=== PATIENT | male | born 1960 | race Caucasian/White ===

== ENCOUNTER 2024-12-25 02:32 | Inpatient (IN) ==
[2024-12-25 03:12] LABS: iSTAT Ionized Calcium 1.12 mmol/l (1.12-1.32); iSTAT Potassium 3.7 mmol/L (3.3-5.0)
--- NOTE | 2024-12-25 03:13 | Emergency Department Note ---
History of Present Illness General Chief complaint: Abdominal Pain Stated complaint: ABD PAIN,FEVER Time Seen by Provider: 12/25/24 02:39 History of Present Illness Maximum Pain Intensity: 7 This 64-year-old male with no prior abdominal surgeries presents ER complaining of right lower quadrant pain for the past 2 days steadily getting worse who now has developed a fever. Colonoscopy earlier this year showed diverticulosis without diverticulitis. Patient denies rash, penile pain, testicular pain, back pain, vomiting, diarrhea, trauma to the area, flank pain or any other medical complaints. Home Medications Medication Instructions Recorded Confirmed Type cholecalciferol (vitamin D3) 10 10 mcg PO DAILY 10/27/20 12/25/24 History mcg (400 unit) capsule lactobacillus combination no.9 4 4,000 mmu cells PO DAILY 05/02/22 12/25/24 History billion cell capsule (Adult 50 Plus Probiotic) azelastine 137 mcg (0.1 %) nasal 1 spray intranasal BID PRN 12/11/23 12/25/24 Rx spray allergies #30 mL ibuprofen 600 mg tablet 600 mg PO QID PRN Pain 05/11/24 12/25/24 History atorvastatin 10 mg tablet 10 mg PO HS #90 tabs 07/09/24 12/25/24 Rx Auto Titrating CPAP 12/25/24 12/25/24 History CPAP Machine 12/25/24 12/25/24 History Allergies Allergy/AdvReac Type Severity Reaction Status Date / Time No Known Allergies Allergy Verified 05/22/24 09:37 Past Med/Surg History Problem List (Updated 12/25/24 @ 05:39 by Lila Carroll DO) Sepsis Sacral lesion Acute appendicitis (Acute) Prediabetes Sleep apnea Hyperlipidemia Medical History History of COVID-19 2022 Hyperlipemia Prediabetes diet controlled Sleep apnea cpap Colitis controlled at present Surgical History History of cystoscopy History of colonoscopy S/P wisdom tooth extraction Family History Father Myocardial infarction Heart disease Mother Diabetes Dementia Sister Diabetes Dementia Brother Dementia Denies family history of Ovarian cancer Prostate cancer Breast cancer Colorectal cancer Social History Smoking Status: Former smoker Tobacco Type: Cigarettes Age Started Using Tobacco: 20; Age Quit Using Tobacco: 47; packs per day: 1; Second Hand Exposure: No; Do You Dip or Chew Tobacco: No; Hx Alcohol Use: No Hx Substance Use: No Preferred Language: Somali Communication Ability: Effective Visual Impairment: No Limitations Hearing Ability: Normal Adjunct History Instructor Required: No Beliefs That Will Affect Care: None marital status: Current Living Situation: Spouse current occupational status: employed current occupation: senior administrative support How many Children do You have: 1 Feels Safe at Home: Yes Childhood Exposure to Second-Hand Smoke: Yes Diet: regular caffeine: Yes during the past year weight has: remained stable Dental Care, Regularly: Yes Physical Activity Frequency: 5-6 Times per Week Seatbelt Use: always Sunscreen Use: Yes Assistive Devices: None Review of Systems A total of 10 systems reviewed and were otherwise negative Physical Exam Vital Signs Vital Signs - 24 hr 12/25/24 02:35 12/25/24 03:20 12/25/24 03:20 Temperature 37.9 C H 36.7 C Temperature Source Oral Oral Pulse Rate 119 H 109 H Pulse Rate from SpO2 Sensor 110 H Respiratory Rate 20 15 Respiratory Effort / Characteristics Non-Labored Spontaneous Respiratory Depth Normal Respiratory Pattern Regular Blood Pressure 136/85 131/80 Blood Pressure [Left Arm] 131/80 Blood Pressure Mean 102 99 Blood Pressure Mean [Left Arm] 97 Pulse Oximetry 96 96 96 Oxygen Delivery Method Room Air Room Air Room Air Sepsis Recent Fever Within 48 Hours Yes Sepsis New/Unexplained Change in Mental Status No Sepsis Action Taken by Nursing No Action Required 12/25/24 03:24 12/25/24 04:00 Temperature Temperature Source Pulse Rate 111 H 111 H Pulse Rate from SpO2 Sensor 110 H Respiratory Rate 16 Respiratory Effort / Characteristics Respiratory Depth Respiratory Pattern Blood Pressure 136/79 Blood Pressure [Left Arm] Blood Pressure Mean 95 Blood Pressure Mean [Left Arm] Pulse Oximetry 95 Oxygen Delivery Method Room Air Sepsis Recent Fever Within 48 Hours Sepsis New/Unexplained Change in Mental Status Sepsis Action Taken by Nursing VITALS: Vitals are noted on the nurse's note and reviewed by myself. Vital signs stable. GENERAL: Pleasant gentleman who appears in pain, in no acute distress, nondiaphoretic, well-developed well-nourished. SKIN: Capillary reflex less than 2 seconds. HEENT: Normocephalic. PERRLA. EOMI. Nares patent. Mucous membranes moist. Neck is supple without nuchal rigidity. HEART: Regular rate and rhythm LUNGS: Clear to auscultation bilaterally without wheezes, rales or rhonchi. No retractions or accessory muscle use. ABDOMEN: Positive bowel sounds x 4. Normal tympanic percussion. Soft, tender to palpation right lower quadrant, without masses or organomegaly. Maria sign negative. No guarding or rebound tenderness. no CVA tenderness MUSCULOSKELETAL: No gross musculoskeletal defects. NEURO: Patient was alert and oriented to person place and time. No focal neurological deficits. Course Administered Medications Acetaminophen (Acetaminophen 325 Mg Tab) 650 mg PO Q4H PRN PRN Reason: Pain or Fever Stop: 01/24/25 07:38 Last Admin: 12/25/24 17:36 Dose: 650 mg Documented By: Admin: 12/25/24 13:40 Dose: 650 mg Documented By: Admin: 12/25/24 09:45 Dose: 650 mg Documented By: CLAYTON Atorvastatin Calcium (Atorvastatin 10 Mg Tab) 10 mg PO HS SHARI Stop: 01/24/25 20:59 Last Admin: 12/25/24 20:46 Dose: 10 mg Documented By: MARCELINO Piperacillin Sod/Tazobactam Sod (Zosyn) 4.5 gm in 100 mls @ 25 mls/hr IV Q8H SHARI; Protocol Stop: 01/04/25 08:29 Last Infusion: 12/25/24 20:55 Dose: Infused Documented By: Admin: 12/25/24 16:57 Dose: 25 mls/hr Documented By: Infusion: 12/25/24 13:39 Dose: Infused Documented By: Admin: 12/25/24 09:35 Dose: 25 mls/hr Documented By: CLAYTON Lactated Ringer's (Lr) 1,000 mls @ 125 mls/hr IV .Q8H SHARI Stop: 12/26/24 00:32 Last Admin: 12/25/24 16:58 Dose: 125 mls/hr Documented By: Infusion: 12/25/24 16:58 Dose: Infused Documented By: Infusion: 12/25/24 13:10 Dose: 125 mls/hr Documented By: Infusion: 12/25/24 12:44 Dose: 0 mls/hr Documented By: Admin: 12/25/24 08:27 Dose: 100 mls/hr Documented By: CLAYTON Morphine Sulfate (Morphine Sulfate 2 Mg/Ml Carp) 1 mg IV Q3H PRN PRN Reason: Pain (1,2,3,4,5) & Pre PT Stop: 01/08/25 07:38 Last Admin: 12/25/24 20:46 Dose: 1 mg Documented By: MARCELINO Morphine Sulfate (Morphine Sulfate 2 Mg/Ml Carp) 2 mg IV Q3H PRN PRN Reason: Pain (6,7,8,9,10) Stop: 01/08/25 07:38 Last Admin: 12/25/24 17:36 Dose: 2 mg Documented By: Admin: 12/25/24 13:39 Dose: 2 mg Documented By: Admin: 12/25/24 10:34 Dose: 2 mg Documented By: Admin: 12/25/24 07:49 Dose: 2 mg Documented By: Ondansetron HCl (Ondansetron Inj 2 Mg/Ml 2 Ml Vial) 4 mg IV Q6H PRN PRN Reason: Nausea And Vomiting Stop: 01/24/25 07:38 Last Admin: 12/25/24 07:49 Dose: 4 mg Documented By: Discontinued Medications Gadobutrol (Gadobutrol 65ml Vial) 8 ml IV ONCE ONE Stop: 12/25/24 06:24 Last Admin: 12/25/24 06:23 Dose: 8 ml Documented By: ALISSA Piperacillin Sod/Tazobactam Sod (Zosyn) 4.5 gm in 100 mls @ 200 mls/hr IV NOW ONE; Protocol Stop: 12/25/24 03:14 Last Infusion: 12/25/24 05:22 Dose: Infused Documented By: Admin: 12/25/24 03:28 Dose: 200 mls/hr Documented By: VIDAL Sodium Chloride (Nss) 1,000 mls @ 999 mls/hr IV .Q1H1M ONE Stop: 12/25/24 03:47 Last Infusion: 12/25/24 05:22 Dose: Infused Documented By: Admin: 12/25/24 03:27 Dose: 999 mls/hr Documented By: VIDAL Acetaminophen (Ofirmev) 1,000 mg in 100 mls @ 400 mls/hr IV NOW STA Stop: 12/25/24 03:01 Last Infusion: 12/25/24 05:22 Dose: Infused Documented By: Admin: 12/25/24 03:50 Dose: 400 mls/hr Documented By: VIDAL Sodium Chloride (Nss) 1,000 mls @ 999 mls/hr IV .Q1H1M ONE Stop: 12/25/24 04:43 Last Infusion: 12/25/24 05:22 Dose: Infused Documented By: Admin: 12/25/24 03:35 Dose: 999 mls/hr Documented By: VIDAL Lactated Ringer's (Lr) 500 mls @ 999 mls/hr IV .Q31M ONE Stop: 12/25/24 12:40 Last Infusion: 12/25/24 13:09 Dose: Infused Documented By: Admin: 12/25/24 12:22 Dose: 999 mls/hr Documented By: CLAYTON Ioversol (Optiray 320 100ml) 100 ml IV ONCE ONE Stop: 12/25/24 03:19 Last Admin: 12/25/24 03:18 Dose: 93 ml Documented By: LIVIA Morphine Sulfate (Morphine Sulfate 4 Mg/Ml 1 Ml Carp\Vial) 4 mg IV NOW STA Stop: 12/25/24 04:12 Last Admin: 12/25/24 05:03 Dose: 4 mg Documented By: HE Ondansetron HCl (Ondansetron Inj 2 Mg/Ml 2 Ml Vial) 4 mg IV NOW STA Stop: 12/25/24 02:48 Last Admin: 12/25/24 03:30 Dose: 4 mg Documented By: VIDAL Medical Decision Making Medical Records Attestation: I reviewed the patient's medical records. Home Medications Current Medication List: was personally reviewed by me Laboratory Data Attestation: I reviewed the patient's lab results. 12/25/24 02:54 12/25/24 02:54 Lab Results 12/25/24 12/25/24 12/25/24 Range/Units 02:54 02:59 03:13 WBC 19.70 H (4.8-10.8) K/ul RBC 5.26 (4.70-6.10) M/uL Hgb 16.6 (14.0-18.0) g/dl POC Hgb 17.0 (14.0-18.0) g/dl Hct 47.1 (42.0-52.0) % POC Hct 50 (42-52) % MCV 89.5 (80.0-100.0) fL MCH 31.6 (25.0-34.0) pg MCHC 35.2 (32.0-36.0) g/dL RDW Std Deviation 43.8 (36.4-46.3) fL RDW Coeff of Trey 13.3 (11.5-14.5) % Plt Count 209 (130-400) K/uL MPV 10.9 (9.4-12.4) fL Immature Gran % (Auto) 0.4 % Neut % (Auto) 83.3 % Lymph % (Auto) 8.3 % Desha % (Auto) 7.7 % Eos % (Auto) 0.1 % Baso % (Auto) 0.2 % Neut # (Auto) 16.42 H (1.40-6.50) K/uL Lymph # (Auto) 1.64 (1.20-3.40) K/uL Desha # (Auto) 1.51 H (0.11-0.59) K/uL Eos # (Auto) 0.01 (0.00-0.50) K/uL Baso # (Auto) 0.04 (0.00-0.20) K/uL Immature Gran # (Auto) 0.08 (0.01-0.20) K/uL POC Sodium 139 (135-144) mmol/L Sodium 137 (136-145) mmol/L POC Potassium 3.7 (3.3-5.0) mmol/L Potassium 3.7 (3.5-5.1) mmol/L POC Chloride 101 (101-112) mmol/L Chloride 101 (98-107) mmol/L Carbon Dioxide 23 (21-32) mmol/L POC Total CO2 20 L (24-31) mmol/L Anion Gap 13 H (3-11) POC Anion Gap 22.0 (16-25) mmol/L POC BUN 11 (7-18) mg/dl BUN 11 (6-23) mg/dl Creatinine 1.04 (0.6-1.4) mg/dl POC Creatinine 1.0 (0.6-1.3) mg/dl Est Cr Clr Drug Dosing 73.6 ml/min eGFR 81.18 BUN/Creatinine Ratio 10.6 (10-20) Glucose 120 H (70-99(Fasting)) mg/dl POC Glucose (other) 123 H (70-99) mg/dl Calcium 9.7 (8.6-10.3) mg/dl POC Ioniz Calcium Pawel 1.12 (1.12-1.32) mmol/l Total Bilirubin 1.8 H (0.2-1.0) mg/dl AST 18 (13-39) U/L ALT 29 (7-52) U/L Alkaline Phosphatase 64 (34-104) U/L Total Protein 8.6 H (6.0-8.3) gm/dl Albumin 5.2 H (3.4-5.0) gm/dl Globulin 3.4 (2.5-4.0) gm/dl Albumin/Globulin Ratio 1.5 (0.9-2) Lipase 12 (11-82) U/L Urine Color Yellow Urine Appearance Clear (Clear) Urine pH 6.0 (4.5-7.5) Ur Specific [place] 1.022 (1.000-1.030) Urine Protein Trace H (Negative) Urine Glucose (UA) Negative (Negative) Urine Ketones 4+ H (Negative) Urine Blood Negative (Negative) Urine Nitrite Negative (Negative) Urine Bilirubin Negative (Negative) Urine Urobilinogen Negative (Negative) Ur Leukocyte Esterase Negative (Negative) Urine WBC (Auto) 0-5 (0-5) /hpf Urine RBC (Auto) 0-2 (0-2) /hpf U Hyaline Cast (Auto) 0-2 (0-2) /lpf U Epithel Cells (Auto) 0-2 (0-2) /hpf Urine Bacteria (Auto) None Seen (None Seen) Imaging Data Attestation: I personally reviewed and interpreted this imaging study as follows: Radiologist's Impression: Abdomen/Pelvis CT 12/25/24 02:40 EXAM: CT abd pelvis IV con only CLINICAL HISTORY: lower abd pain, fever TECHNIQUE: Multiple contiguous axial images were obtained from the level of diaphragm to the pubis symphysis. This study was acquired after the IV administration of iodinated contrast material, given the patient's indications for the examination. If IV contrast material had not been administered, the likelihood of detecting abnormalities relevant to the patient's condition would have been substantially decreased. Coronal and sagittal reformatted images were generated and reviewed to improve anatomic localization and optimize lesion detection. CT scan was performed according to ALARA (as low as reasonably achievable). COMPARISON: None. FINDINGS: The visualized lung bases are clear. ABDOMEN/PELVIS: The liver is normal in size and attenuation. No focal liver lesions are seen. There is no intra or extrahepatic biliary ductal dilatation. Hepatic vasculature is patent. The gallbladder is unremarkable. The spleen, pancreas, and adrenal glands are unremarkable. The kidneys are normal in size and attenuation. There is no hydronephrosis or perinephric fat stranding. No renal calculi or renal masses are identified. The ureters are normal in caliber and no ureteral calculi are seen. Diffuse circumferential homogeneously enhancing irregular wall thickening of urinary bladder noted, maximum wall thickness of 7 mm ; possible changes of cystitis or bladder outlet obstruction. Suggested clinicopathological correlation. Prostate appears enlarged in size, measures 38 x 54 x 46 mm, volume 47 g with median lobe hypertrophy indenting the urinary bladder base. Approximately 14 mm size fluid filled inflamed appendix with thick enhancing bearden seen in right iliac fossa region. Mild to moderate periappendicular fat stranding noted. Mild periappendicular free fluid noted. Few subcentimeter sized homogeneously enhancing discrete mesenteric lymph nodes seen in right iliac fossa and right lumbar region. No evidence of calcification, conglomeration or necrosis seen. Diffuse circumferential homogeneously enhancing edematous wall thickening of base of cecum noted, maximum wall thickness of 7 mm, suggestive of changes of secondary typhlitis. Multiple air and content filled outpouchings are seen arising from sigmoid colon ; suggestive of sigmoid colon diverticulosis. No evident signs of diverticulitis. The aorta is normal in caliber. Calcified atheromatous changes noted in aorta. Spondylotic changes seen in lumbar spine. A well defined focal space occupying lesion seen in spinal canal at the level of S2, S3, S4 vertebrae. It causes posterior scalloping of sacral vertebral bodies (S2, S3, S4). It causes expansion of bony spinal canal. It measures 5 cm in craniocaudal axis and 2.3 cm in nara-posterior dimension. Requires MRI lumbosacral spine for further evaluation. IMPRESSION: 1. Changes of acute appendicitis. 2. Prostatomegaly (volume 47 g) with median lobe hypertrophy indenting urinary bladder base. 3. Diffuse circumferential irregular wall thickening of urinary bladder; possible changes of cystitis or bladder outlet obstruction. Suggested clinical correlation. 4. Changes of secondary typhlitis. 5. Reactive mesenteric lymphadenitis. 6. Sigmoid colon diverticulosis. No evident signs of diverticulitis. 7. Well defined focal space occupying lesion in spinal canal at S2, S3, S4 vertebrae level, causing posterior scalloping of sacral vertebral bodies (S2, S3, S4) and expansion of bony spinal canal. Requires MRI lumbosacral spine for further evaluation. Electronically signed by Gopal White 12-25-2024 04:23 AM [facility] Narrative Prior records/ancillary studies reviewed. Triage Nursing notes reviewed. Additional history obtained from nursing. The patient's history was concerning for abdominal pain. Differential diagnosis: Etiologies such as appendicitis, diverticulitis, PUD, biliary pathology, UTI, pancreatitis, obstruction, mesenteric ischemia, aortic pathology, infections, inflammatory bowel disease, renal colic, as well as others were entertained. Physical examination findings: As above. ER treatment provided: An order was placed for continuous cardiac monitoring. The monitor shows a rate of 60-1 20 with a sinus rhythm per my Independent interpretation. IV fluids, Tylenol, Zosyn, morphine On reassessment the patient felt better. Diagnostics interpreted by me: The labs Independently Interpreted by myself revealed leukocytosis, stable H&H Blood cultures pending Negative urine for infection Imaging studies: Imaging was reviewed and read by radiology Consultation: A consultation was placed with the surgery, Dr. Alicia. The case was discussed and diagnostics were reviewed. He did review the CT and believes the patient has a perforated appendicitis. He recommends IV antibiotics and medicine admission with him being consulted. Medicine was consulted case discussed. Patient was admitted to the medical service. Exam and history seem consistent with ruptured acute appendicitis with other incidental findings on imaging. Patient was neurovascularly and neurologically intact. No back pain. MRI was ordered for abnormalities of the spine seen on imaging. He was started on antibiotics upon my initial evaluation as I was concerned he had a ruptured appendicitis. He was placed NPO. He was hydrated as above. He is agreeable treatment plan of admission. Medicine and surgery were consulted and the case was discussed with both. By the evaluation outlined above emergent etiologies such as diverticulitis, PUD, biliary pathology, UTI, pancreatitis, obstruction, mesenteric ischemia, aortic pathology, inflammatory bowel disease, renal colic, as well as others were deemed relatively unlikely. The pt informed about the findings as listed above. All questions were answered and pleased with the treatment. The chart was completed utilizing [employer] Speech voice recognition software. Grammatical errors, random word insertions, pronoun errors, and incomplete sentences are an occassional consequence of this system due to software limitations, ambient noise, and hardware issues. Any formal questions or concerns about the content, text, or information contained within the body of this dictation should be directly addressed to the physician financial administrative assistant for clarification. Impression & Plan Acute appendicitis Discharge Plan Visit Data Chief Complaint: Abdominal Pain Stated Complaint: ABD PAIN,FEVER ED Provider: Kati Leggett ED Midlevel Provider: Keira Knox Discharge Problem: Acute appendicitis Patient Disposition: Admitted As Inpatient Condition: Fair Discharge Instructions Interventions: ED Discharge Assessment Last Done: 12/25/24 07:40 Discharge Problem: Acute appendicitis Qualifiers: Acute appendicitis type: unspecified acute appendicitis type Qualified Code(s): K35.80 - Unspecified acute appendicitis
[2024-12-25] MEDS: OPTIRAY 320 100ml IV ONE (03:18)
[2024-12-25 03:19] LABS: Basophils # (auto) 0.04 K/uL (0.00-0.20); Basophils % (auto) 0.2 %; Eosinophils # (auto) 0.01 K/uL (0.00-0.50); Eosinophils % (auto) 0.1 %; Hematocrit (blood only) 47.1 % (42.0-52.0); Hemoglobin 16.6 g/dl (14.0-18.0); Immature Granulocytes # (auto) 0.08 K/uL (0.01-0.20); Immature Granulocytes % (auto) 0.4 %; Lymphocytes # (auto) 1.64 K/uL (1.20-3.40); Lymphocytes % (auto) 8.3 %; Mean Corpuscular Hemoglobin 31.6 pg (25.0-34.0); Mean Corpuscular Hgb Conc 35.2 g/dL (32.0-36.0); Mean Corpuscular Volume 89.5 fL (80.0-100.0); Mean Platelet Volume 10.9 fL (9.4-12.4); Monocytes # (auto) 1.51 K/uL (0.11-0.59); Monocytes % (auto) 7.7 %; Neutrophils # (auto) 16.42 K/uL (1.40-6.50); Neutrophils % (auto) 83.3 %; Platelet Count 209 K/uL (130-400); RDW Coefficient of Variation 13.3 % (11.5-14.5); RDW Standard Deviation 43.8 fL (36.4-46.3); Red Blood Count 5.26 M/uL (4.70-6.10)
[2024-12-25 03:26] LABS: Appearance Urine Clear (Clear); Bacteria Urine Automated None Seen (None Seen); Bilirubin Urine Negative (Negative); Blood Urine Negative (Negative); Cast Urine Automated 0-2 /lpf (0-2); Color Urine Yellow; Epithelial Cell Urine Auto 0-2 /hpf (0-2); Glucose Urine UA Negative (Negative); Ketones Urine 4+ (Negative); Leukocyte Esterase Urine Negative (Negative); Nitrite Urine Negative (Negative); Protein Urine Trace (Negative); RBC Urine Automated 0-2 /hpf (0-2); Specific Gravity Urine 1.022 (1.000-1.030); Urobilinogen Urine Negative (Negative); WBC Urine Automated 0-5 /hpf (0-5)
[2024-12-25] MEDS: SODIUM CHLORIDE 0.9% 1,000 ML IV ONE ×2 (03:27→03:35)
[2024-12-25] MEDS: PIPERACILLIN/TAZOBACTAM 4.5 GM/100 ML BAG IV ONE (03:28)
[2024-12-25] MEDS: ONDANSETRON INJ 2 MG/ML 2 ML VIAL IV STA (03:30)
[2024-12-25 03:32] LABS: Albumin Globulin Ratio 1.5 (0.9-2); Albumin Level 5.2 gm/dl (3.4-5.0); BUN Creatinine Ratio 10.6 (10-20); Bilirubin,Total 1.8 mg/dl (0.2-1.0); Calcium 9.7 mg/dl (8.6-10.3); Creatinine Clr Calc Pharmacy 73.6 ml/min; Globulin 3.4 gm/dl (2.5-4.0); Potassium 3.7 mmol/L (3.5-5.1); Total Protein 8.6 gm/dl (6.0-8.3)
[2024-12-25] MEDS: ACETAMINOPHEN 1,000 MG/100 ML VIAL IV STA (03:50)
--- OUTSIDE RECORDS SUMMARY | 2024-12-25 04:23 | External Medical Summary | Summary of Care ---
Author Name Unknown Organization [facility] Address [address] [place] [address] Phone [phone] Care Team Providers Care Commercial Coordinator Name Role Phone Unavailable Primary Care Provider Unavailabl e Encounter Details Date Type Department Care Team (Late st Contact Info) Description 12/14/2024 Orders Only Outcomes Research Department [address] [place] [address] [address] Doshi [facility] Other*[id number] Allergies No known active allergiesdocumented as of this encounter (statuses as of 12/14/2024) Medications Probiotic CapsuleIndicatio ns:Physical exam, annual Take 1 Cap by mouth three times a day with meals. 07/23/2017 Active Multiple Vitamin (MULTI-DAY VITAMINS) Tablet Take 1 Tab by mouth daily. Active Atorvastatin Calcium 10 MG Oral Tablet (LIPITOR) Take 1 Tab by mouth daily. 30 Tab 5 08/05/2020 Active documented as of this encounter (statuses as of 12/14/2024) Active Problems Problem Noted Date Diagnosed Date DUSTIN on CPAP 12/27/2011 Overview (04/27/2020): Novasom, AHI average 12.5 over 3 nights Back pain, chronic 11/10/2011 Myalgia and myositis 11/10/2011 Prediabetes 07/02/2011 Overview (07/03/2011): 06/26 a1c 5.9 Dyslipidemia 08/30/2009 Overview (08/30/2009): Per Lipid Taxonomy. BPH without obstruction/lower urinary tract symp toms Overview (07/02/2011): found after w/u for hematuria - not on meds Allergic rhinitis documented as of this encounter (statuses as of 12/14/2024) Resolved Problems Problem Noted Date Diagnosed Date Resolved Date Genetic Sleep Disorder [facility] Other*[id number] 11/29/2011 04/12/2016 Mixed dyslipidemia 05/13/2009 9 Overview (08/30/2009): Per Lipid Taxonomy. Tobacco use disorder 05/13/2009 011 documented as of this encounter (statuses as of 12/14/2024) Immunizations Name Administration Dates Next Due Seasonal Influenza, Quadrivalent, No Preserve, I M 06/25/2019,06/25/2018 Seasonal Influenza, Trivalent, (IIV3), PF, (Fluz one) 07/17/2010 TDAP, Age 7 and older, IM (Adacel) 06/27/2020, documented as of this encounter Social History Tobacco Use Types Packs/Day Years Used Date Smoking Tobacco: Former Cigarettes 0.5 30 1 - 07/02/2008 Smokeless Tobacco: Never Comments:started age 18 Alcohol Use Standard Drinks/Week Comments Yes 0 (1 standard drink = 0.6 oz pur e alcohol) occ PHQ-2 Answer Date Recorded PHQ-2 Score 0 07/20/2020 Utilities Answer Date Recorded Do you have trouble paying y our heating, water, or electric bill? (Adult - for ages 18 years and over) Not on file 03/03/2024 Is your family able to pay t he heat, water, or electric bill? (Household - for ages 0-17 years) Not on file 03/03/2024 Does your family have access to good internet? (Household - for ages 0-17 years) Not on file 03/03/2024 Social Connections Answer Date Recorded How often do you feel lonely or isolated from those around you? 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 Not on file Not on file documented as of this encounter Plan of Treatment Scheduled Orders Name Type Priority Associated Diagnoses Orde r Schedule MYCODE SUBSEQUENT ADULT Lab Routine [facility] Other*[id number] Every 6 Months for 2 Occurrences starting 12/14/2024 until 01/03/2026 Scheduled Procedures Name Priority Associated Diagnoses Date/Ti me COLONOSCOPY FLEXIBLE PROXIMA L DIAGNOSTIC Recall Special screening for malignant neoplasms, colon Health Maintenance Due Date Last Done Comments Cologuard 2007 Fecal Occult Blood Test 2007 Sigmoidoscopy 2007 Pneumococcal Vaccine: 50+ Years (1 of 1 - PCV) 2012 Zoster Vaccines (1 of 2) 2012 Depression Screening 07/19/2021 07/19/2020 HbA1c 08/01/2021 08/01/2020, 07/17, 07/24/2018, Additional history exists COVID-19 Vaccine ( season) 2024 Influenza Vaccine (FLU shot) (#1) 2024 06/21/2020, 06/25/2019, 06/25/2018, Additional history exists Colonoscopy 07/14/2024 07/14/2014, 07/14/2014 Colorectal Cancer Screening 07/14/2024 Lipid Panel 08/01/2025 08/01/2020, 07/17, 07/24/2018, Additional history exists DTap/Tdap Vaccines (3 - Td or Tdap) 06/27/2030 06/27/2020, 04/19/2009 HPV (Gardasil) Vaccine Aged Out No lo nger eligible based on patient's age to complete this topic Hepatitis B Vaccine Aged Out No longe r eligible based on patient's age to complete this topic MENINGOCOCCAL (MENACTRA/MENVEO) Aged Out No longer eligible based on patient's age to complete this topic Meningitis B Vaccine (Bexsero/Trumemba) Aged Out No longer eligible based on patient's age to complete this topic documented as of this encounter Medical Devices Not on filedocumented as of this encounter Visit Diagnoses Diagnosis [facility] Other*[id number] documented in this encounter
--- NOTE | 2024-12-25 04:24 | CT Scan Report ---
EXAM: CT abd pelvis IV con only CLINICAL HISTORY: lower abd pain, fever TECHNIQUE: Multiple contiguous axial images were obtained from the level of diaphragm to the pubis symphysis. This study was acquired after the IV administration of iodinated contrast material, given the patient's indications for the examination. If IV contrast material had not been administered, the likelihood of detecting abnormalities relevant to the patient's condition would have been substantially decreased. Coronal and sagittal reformatted images were generated and reviewed to improve anatomic localization and optimize lesion detection. CT scan was performed according to ALARA (as low as reasonably achievable). COMPARISON: None. FINDINGS: The visualized lung bases are clear. ABDOMEN/PELVIS: The liver is normal in size and attenuation. No focal liver lesions are seen. There is no intra or extrahepatic biliary ductal dilatation. Hepatic vasculature is patent. The gallbladder is unremarkable. The spleen, pancreas, and adrenal glands are unremarkable. The kidneys are normal in size and attenuation. There is no hydronephrosis or perinephric fat stranding. No renal calculi or renal masses are identified. The ureters are normal in caliber and no ureteral calculi are seen. Diffuse circumferential homogeneously enhancing irregular wall thickening of urinary bladder noted, maximum wall thickness of 7 mm ; possible changes of cystitis or bladder outlet obstruction. Suggested clinicopathological correlation. Prostate appears enlarged in size, measures 38 x 54 x 46 mm, volume 47 g with median lobe hypertrophy indenting the urinary bladder base. Approximately 14 mm size fluid filled inflamed appendix with thick enhancing bearden seen in right iliac fossa region. Mild to moderate periappendicular fat stranding noted. Mild periappendicular free fluid noted. Few subcentimeter sized homogeneously enhancing discrete mesenteric lymph nodes seen in right iliac fossa and right lumbar region. No evidence of calcification, conglomeration or necrosis seen. Diffuse circumferential homogeneously enhancing edematous wall thickening of base of cecum noted, maximum wall thickness of 7 mm, suggestive of changes of secondary typhlitis. Multiple air and content filled outpouchings are seen arising from sigmoid colon ; suggestive of sigmoid colon diverticulosis. No evident signs of diverticulitis. The aorta is normal in caliber. Calcified atheromatous changes noted in aorta. Spondylotic changes seen in lumbar spine. A well defined focal space occupying lesion seen in spinal canal at the level of S2, S3, S4 vertebrae. It causes posterior scalloping of sacral vertebral bodies (S2, S3, S4). It causes expansion of bony spinal canal. It measures 5 cm in craniocaudal axis and 2.3 cm in nara-posterior dimension. Requires MRI lumbosacral spine for further evaluation. IMPRESSION: 1. Changes of acute appendicitis. 2. Prostatomegaly (volume 47 g) with median lobe hypertrophy indenting urinary bladder base. 3. Diffuse circumferential irregular wall thickening of urinary bladder; possible changes of cystitis or bladder outlet obstruction. Suggested clinical correlation. 4. Changes of secondary typhlitis. 5. Reactive mesenteric lymphadenitis. 6. Sigmoid colon diverticulosis. No evident signs of diverticulitis. 7. Well defined focal space occupying lesion in spinal canal at S2, S3, S4 vertebrae level, causing posterior scalloping of sacral vertebral bodies (S2, S3, S4) and expansion of bony spinal canal. Requires MRI lumbosacral spine for further evaluation. Electronically signed by Gopal White 12-25-2024 04:23 AM
[2024-12-25] MEDS: MoRPHine SULFATE 4 MG/ML 1 ML CARP\\VIAL IV STA (05:03)
--- NOTE | 2024-12-25 05:07 | History & Physical Report ---
Date of Service December 25, 2024 Assessment & Plan (1) Acute appendicitis: (2) Sepsis: (3) Sacral lesion: (4) Hyperlipidemia: (5) Sleep apnea: Plan 64yo male with history of HLP and DUSTIN presenting with two days of abdominal pain, RLQ pain and fever. Found to have acute appendicitis. Sepsis present on admission with SIRS 2/4 (Tachycardia, leukocytosis) CT imaging also revealed lesion in the sacral spine. Patient does endorse some mild difficulty urinating over the last several days as well as constipation #Acute appendicitis -Admit to PCU -Keep NPO -LR at 100mL/hr x 2L -Zosyn 4.5gm IV q 8 hours -Morphine PRN pain -Zofran PRN Nausea -General Surgery consultation appreciated #Sepsis present on admission - Patient with 2/4 SIRS, secondary to acute appendicitis -Continue IVF -Zosyn -Check Lactate #Sacral Lesion - patient with well defined focal space occupying lesion in the spinal canal at S2, S3, S4 vertebral level with scalloping of the sacral vertebral bodies and expansion of bony spinal canal. He endorses chronic back pain for many years which is unchanged -Check MRI lumbar spine -Bladder scan and straight cath as needed #Hyperlipidemia -Continue Atorvastatin #DUSTIN - patient compliant with CPAP -Continue CPAP qHS History of Present Illness Chief Complaint: abdominal pain Primary Care Provider: Gopal Alicia DO Austen Wyman is a pleasant 64yo male with history of HLP and DUSTIN presenting with two days of abdominal pain. Patient began feeling "off" on 12/23/24 with some lower abdominal discomfort and poor appetite. On 12/24/24 he continued to not feel well -ongoing lower abdominal pain. He developed a fever during the day. Last night he was unable to sleep and had worsning RLQ abdominal pain as well as ongoing fever which prompted him to come to the ER. Patient complaining of abdominal pain Also mentions some abdominal bloating He denies chest pain, cough, SOB. Denies nausea/vomiting/diarrhea. He reports some very minor difficulty urinating over the last several days and some constipation as well. Otherwise denies numbness/tingling/weakness. No additional complaints at this time. In the ER he has elevated temperature at 37.9, tachycardic at 111bpm ER Course: NSS Tylenol Morphine Zofran Zosyn Allergies Allergy/AdvReac Type Severity Reaction Status Date / Time No Known Allergies Allergy Verified 05/22/24 09:37 Home Medications Medication Instructions Recorded Confirmed Type cholecalciferol (vitamin D3) 10 10 mcg PO DAILY 10/27/20 05/22/24 History mcg (400 unit) capsule Auto Titrating CPAP See Rx Instructions .Route 07/13/21 05/22/24 Rx .COMPLEX #1 ea lactobacillus combination no.9 4 4,000 mmu cells PO DAILY 05/02/22 05/22/24 History billion cell capsule (Adult 50 Plus Probiotic) azelastine 137 mcg (0.1 %) nasal 1 spray intranasal BID PRN 12/11/23 05/22/24 Rx spray allergies #30 mL CPAP Machine See Rx Instructions .Route 01/29/24 05/22/24 Rx .COMPLEX #1 ea ibuprofen 600 mg tablet 600 mg PO QID PRN Pain 05/11/24 05/22/24 History atorvastatin 10 mg tablet 10 mg PO HS #90 tabs 07/09/24 Rx Past Med/Surg History Problem List (Updated 12/25/24 @ 05:39 by Lila Carroll DO) Sepsis Sacral lesion Acute appendicitis (Acute) Prediabetes Sleep apnea Hyperlipidemia Medical History History of COVID-19 2022 Hyperlipemia Prediabetes diet controlled Sleep apnea cpap Colitis controlled at present Surgical History History of cystoscopy History of colonoscopy S/P wisdom tooth extraction Family History Father Myocardial infarction Heart disease Mother Diabetes Dementia Sister Diabetes Dementia Brother Dementia Denies family history of Ovarian cancer Prostate cancer Breast cancer Colorectal cancer Social History Smoking Status: Former smoker Tobacco Type: Cigarettes Age Started Using Tobacco: 20; Age Quit Using Tobacco: 47; packs per day: 1; Second Hand Exposure: No; Do You Dip or Chew Tobacco: No; Hx Alcohol Use: Yes Alcohol type: beer, wine and hard liquor Alcohol Intake Frequency: 2-3 x/Week Hx Substance Use: No Preferred Language: Kyrgyz Communication Ability: Effective Visual Impairment: No Limitations Hearing Ability: Normal Shipping/Receiving Manager Required: No Beliefs That Will Affect Care: None marital status: Current Living Situation: Spouse current occupational status: employed current occupation: senior manager quality assurance How many Children do You have: 1 Feels Safe at Home: Yes Childhood Exposure to Second-Hand Smoke: Yes Diet: regular caffeine: Yes during the past year weight has: remained stable Dental Care, Regularly: Yes Physical Activity Frequency: 5-6 Times per Week Seatbelt Use: always Sunscreen Use: Yes Assistive Devices: CPAP and Glasses Review of Systems Review of Systems: All systems reviewed & are unremarkable except as noted in HPI & below Physical Exam Physical Exam: General: patient resting comfortably, NAD, non-toxic in appearance, AA&O x 4 Skin: warm, dry, intact, no rashes or lesions HEENT: NC/AT, PERRL, EOMI, anicteric sclera, conjunctiva without injection, external ear normal to inspection and nontender, nares patent, moist mucus membranes, dentition intact, no oropharyngeal lesions, neck supple, trachea midline, no LAD, no thyromegaly, no JVD Heart: +S1/S2, regular, no m/r/g Lungs: equal air entry bilaterally, no rales/rhonchi/wheezes Abd: +BS, soft, tenderness in RLQ with no rebound/guarding, ND, no masses/organomegaly/ascites Ext: warm, 2+ pulses in UE/LE bilaterally, no clubbing/cyanosis or edema Neuro: nonfocal, patient AA&O x 4, speech intact, no facial droop, moving all extremities on command with equal strength 5/5 No spinal deformity or tenderness. Patellar reflexes intact, sensation intact, LE strength 5/5 Results & Data Results & Data Vital Signs (Past 12 Hours) Vital Signs Temp Pulse BP Pulse Ox O2 Del Method 12/25/24 03:24 111 H 12/25/24 02:35 37.9 C H 119 H 136/85 96 Room Air Laboratory Results Laboratory Results WBC 19.70 K/ul (4.8-10.8) H 12/25/24 02:54 RBC 5.26 M/uL (4.70-6.10) 12/25/24 02:54 Hgb 16.6 g/dl (14.0-18.0) 12/25/24 02:54 POC Hgb 17.0 g/dl (14.0-18.0) 12/25/24 02:59 Hct 47.1 % (42.0-52.0) 12/25/24 02:54 POC Hct 50 % (42-52) 12/25/24 02:59 MCV 89.5 fL (80.0-100.0) 12/25/24 02:54 MCH 31.6 pg (25.0-34.0) 12/25/24 02:54 MCHC 35.2 g/dL (32.0-36.0) 12/25/24 02:54 RDW Std Deviation 43.8 fL (36.4-46.3) 12/25/24 02:54 RDW Coeff of Trey 13.3 % (11.5-14.5) 12/25/24 02:54 Plt Count 209 K/uL (130-400) 12/25/24 02:54 MPV 10.9 fL (9.4-12.4) 12/25/24 02:54 Immature Gran % (Auto) 0.4 % 12/25/24 02:54 Neut % (Auto) 83.3 % 12/25/24 02:54 Lymph % (Auto) 8.3 % 12/25/24 02:54 Forest % (Auto) 7.7 % 12/25/24 02:54 Eos % (Auto) 0.1 % 12/25/24 02:54 Baso % (Auto) 0.2 % 12/25/24 02:54 Neut # (Auto) 16.42 K/uL (1.40-6.50) H 12/25/24 02:54 Lymph # (Auto) 1.64 K/uL (1.20-3.40) 12/25/24 02:54 Forest # (Auto) 1.51 K/uL (0.11-0.59) H 12/25/24 02:54 Eos # (Auto) 0.01 K/uL (0.00-0.50) 12/25/24 02:54 Baso # (Auto) 0.04 K/uL (0.00-0.20) 12/25/24 02:54 Immature Gran # (Auto) 0.08 K/uL (0.01-0.20) 12/25/24 02:54 POC Sodium 139 mmol/L (135-144) 12/25/24 02:59 Sodium 137 mmol/L (136-145) 12/25/24 02:54 POC Potassium 3.7 mmol/L (3.3-5.0) 12/25/24 02:59 Potassium 3.7 mmol/L (3.5-5.1) 12/25/24 02:54 POC Chloride 101 mmol/L (101-112) 12/25/24 02:59 Chloride 101 mmol/L (98-107) 12/25/24 02:54 Carbon Dioxide 23 mmol/L (21-32) 12/25/24 02:54 POC Total CO2 20 mmol/L (24-31) L 12/25/24 02:59 Anion Gap 13 (3-11) H 12/25/24 02:54 POC Anion Gap 22.0 mmol/L (16-25) 12/25/24 02:59 POC BUN 11 mg/dl (7-18) 12/25/24 02:59 BUN 11 mg/dl (6-23) 12/25/24 02:54 Creatinine 1.04 mg/dl (0.6-1.4) 12/25/24 02:54 POC Creatinine 1.0 mg/dl (0.6-1.3) 12/25/24 02:59 Est Cr Clr Drug Dosing 73.6 ml/min 12/25/24 02:54 eGFR 81.18 12/25/24 02:54 BUN/Creatinine Ratio 10.6 (10-20) 12/25/24 02:54 Glucose 120 mg/dl (70-99(Fasting)) H 12/25/24 02:54 POC Glucose (other) 123 mg/dl (70-99) H 12/25/24 02:59 Calcium 9.7 mg/dl (8.6-10.3) 12/25/24 02:54 POC Ioniz Calcium Pawel 1.12 mmol/l (1.12-1.32) 12/25/24 02:59 Total Bilirubin 1.8 mg/dl (0.2-1.0) H 12/25/24 02:54 AST 18 U/L (13-39) 12/25/24 02:54 ALT 29 U/L (7-52) 12/25/24 02:54 Alkaline Phosphatase 64 U/L (34-104) 12/25/24 02:54 Total Protein 8.6 gm/dl (6.0-8.3) H 12/25/24 02:54 Albumin 5.2 gm/dl (3.4-5.0) H 12/25/24 02:54 Globulin 3.4 gm/dl (2.5-4.0) 12/25/24 02:54 Albumin/Globulin Ratio 1.5 (0.9-2) 12/25/24 02:54 Lipase 12 U/L (11-82) 12/25/24 02:54 Urine Color Yellow 12/25/24 03:13 Urine Appearance Clear (Clear) 12/25/24 03:13 Urine pH 6.0 (4.5-7.5) 12/25/24 03:13 Ur Specific [employer] 1.022 (1.000-1.030) 12/25/24 03:13 Urine Protein Trace (Negative) H 12/25/24 03:13 Urine Glucose (UA) Negative (Negative) 12/25/24 03:13 Urine Ketones 4+ (Negative) H 12/25/24 03:13 Urine Blood Negative (Negative) 12/25/24 03:13 Urine Nitrite Negative (Negative) 12/25/24 03:13 Urine Bilirubin Negative (Negative) 12/25/24 03:13 Urine Urobilinogen Negative (Negative) 12/25/24 03:13 Ur Leukocyte Esterase Negative (Negative) 12/25/24 03:13 Urine WBC (Auto) 0-5 /hpf (0-5) 12/25/24 03:13 Urine RBC (Auto) 0-2 /hpf (0-2) 12/25/24 03:13 U Hyaline Cast (Auto) 0-2 /lpf (0-2) 12/25/24 03:13 U Epithel Cells (Auto) 0-2 /hpf (0-2) 12/25/24 03:13 Urine Bacteria (Auto) None Seen (None Seen) 12/25/24 03:13 Impressions Abdomen/Pelvis CT 12/25/24 02:40 EXAM: CT abd pelvis IV con only CLINICAL HISTORY: lower abd pain, fever TECHNIQUE: Multiple contiguous axial images were obtained from the level of diaphragm to the pubis symphysis. This study was acquired after the IV administration of iodinated contrast material, given the patient's indications for the examination. If IV contrast material had not been administered, the likelihood of detecting abnormalities relevant to the patient's condition would have been substantially decreased. Coronal and sagittal reformatted images were generated and reviewed to improve anatomic localization and optimize lesion detection. CT scan was performed according to ALARA (as low as reasonably achievable). COMPARISON: None. FINDINGS: The visualized lung bases are clear. ABDOMEN/PELVIS: The liver is normal in size and attenuation. No focal liver lesions are seen. There is no intra or extrahepatic biliary ductal dilatation. Hepatic vasculature is patent. The gallbladder is unremarkable. The spleen, pancreas, and adrenal glands are unremarkable. The kidneys are normal in size and attenuation. There is no hydronephrosis or perinephric fat stranding. No renal calculi or renal masses are identified. The ureters are normal in caliber and no ureteral calculi are seen. Diffuse circumferential homogeneously enhancing irregular wall thickening of urinary bladder noted, maximum wall thickness of 7 mm ; possible changes of cystitis or bladder outlet obstruction. Suggested clinicopathological correlation. Prostate appears enlarged in size, measures 38 x 54 x 46 mm, volume 47 g with median lobe hypertrophy indenting the urinary bladder base. Approximately 14 mm size fluid filled inflamed appendix with thick enhancing bearden seen in right iliac fossa region. Mild to moderate periappendicular fat stranding noted. Mild periappendicular free fluid noted. Few subcentimeter sized homogeneously enhancing discrete mesenteric lymph nodes seen in right iliac fossa and right lumbar region. No evidence of calcification, conglomeration or necrosis seen. Diffuse circumferential homogeneously enhancing edematous wall thickening of base of cecum noted, maximum wall thickness of 7 mm, suggestive of changes of secondary typhlitis. Multiple air and content filled outpouchings are seen arising from sigmoid colon ; suggestive of sigmoid colon diverticulosis. No evident signs of diverticulitis. The aorta is normal in caliber. Calcified atheromatous changes noted in aorta. Spondylotic changes seen in lumbar spine. A well defined focal space occupying lesion seen in spinal canal at the level of S2, S3, S4 vertebrae. It causes posterior scalloping of sacral vertebral bodies (S2, S3, S4). It causes expansion of bony spinal canal. It measures 5 cm in craniocaudal axis and 2.3 cm in nara-posterior dimension. Requires MRI lumbosacral spine for further evaluation. IMPRESSION: 1. Changes of acute appendicitis. 2. Prostatomegaly (volume 47 g) with median lobe hypertrophy indenting urinary bladder base. 3. Diffuse circumferential irregular wall thickening of urinary bladder; possible changes of cystitis or bladder outlet obstruction. Suggested clinical correlation. 4. Changes of secondary typhlitis. 5. Reactive mesenteric lymphadenitis. 6. Sigmoid colon diverticulosis. No evident signs of diverticulitis. 7. Well defined focal space occupying lesion in spinal canal at S2, S3, S4 vertebrae level, causing posterior scalloping of sacral vertebral bodies (S2, S3, S4) and expansion of bony spinal canal. Requires MRI lumbosacral spine for further evaluation. Electronically signed by Gopal White 12-25-2024 04:23 AM Code Status & VTE Plan VTE Prophylaxis Plan VTE Prophylaxis will be ordered: Yes PG Care Time/CCT Total # of Minutes Spent Total Time Spent with Patient: Total time spent is greater than 50% in coordination of care (as documented) at patient's floor/unit and/or counseling patient: Coding Level of Care Code 34155 INT INP/OBS CARE 3/75MIN Diagnoses Acute appendicitis K35.80 Acute appendicitis type: unspecified acute appendicitis type Sepsis A41.9 Sacral lesion M53.3 Hyperlipidemia E78.5 Sleep apnea G47.30 (1) Acute appendicitis Acute appendicitis type: unspecified acute appendicitis type Qualified Code(s): K35.80 - Unspecified acute appendicitis
[2024-12-25] MEDS: GADOBUTROL 65ML VIAL IV ONE (06:23)
--- NOTE | 2024-12-25 07:39 | Magnetic Resonance Report ---
EXAM: MR lumbar spine wo/w con CLINICAL HISTORY: Abnl CT, ? masses in the spine. TECHNIQUE: MRI of the lumbar spine was performed without and with intravenous contrast administration of 8cc Gadavist. Sequences obtained include pre-contrast and post-contrast T1-weighted, T2-weighted, STIR (Short Tau Inversion Recovery), and axial T2-weighted sequences. COMPARISON: None. FINDINGS: Vertebrae and discs: A straightened lumbar curve implies muscle spasm. Advanced multilevel thoracolumbar disc desiccation is noted manifested by variable reduced height and loss of bright T2 signal with marginal bone hypertrophy of the opposing vertebral endplates. Normal alignment of the lumbar vertebrae. Few small schmorl's nodes of vertebral end plates. L3 focal mixed oedematous and fatty Modic changes of the vertebral end plate. Normal vertebral body height, no fracture identified. No lytic or sclerotic lesions. Joints: L4-5 and L5-S1 hypertrophic facetal arthropathy, with mild effusion and surrounding soft tissue oedematous changes of high STIR signal intensities, At L5/S1, small marginally enhancing collection seen posterior to the facets , measuring 11 x 5 mm on the right side and 4 x 5 mm on the left side. Associated altered oedematous vertebral bone marrow of both facets, more on the right side. [id number] analysis: T12-L1: There is no significant disc pathology. No central canal stenosis. No neural foraminal stenosis.No ligamentum flavum hypertrophy and facet joint arthropathy. L1-L2: There is no significant disc pathology. No central canal stenosis. No neural foraminal stenosis.No ligamentum flavum hypertrophy and facet joint arthropathy. L2-L3: Bi-foraminal disc bulge, more on the left side, measuring 2.8 mm at the left foraminal level, causing bilateral mild foraminal stenosis more on the left side. No central canal stenosis. No ligamentum flavum hypertrophy and facet joint arthropathy. L3-L4: Bi-foraminal disc bulge, measuring 2.9 mm at the foraminal level, causing bilateral mild to moderate foraminal stenosis. No central canal stenosis. No ligamentum flavum hypertrophy. Mild facet joint arthropathy. L4-L5: posterior disc bulge measuring 2.9 mm, indenting the thecal sac, causing mild central spinal canal and bilateral moderate foraminal stenosis, indenting the emerging nerve roots. Mild ligamentum flavum hypertrophyn. L5-S1: posterior disc bulge measuring 1.5 mm. No central canal stenosis. No neural foraminal stenosis.No ligamentum flavum hypertrophy. Spinal Cord and Cauda Equina: A sacral intraspinal perineural cyst opposite S1 through S4, measuring 51 x 24 mm along the maximum height and AP diameters, elicited a fluid signal with no appreciable enhancement. corresponding scalping of the sacral vertebra posterior cortex. Normal signal intensity and morphology of the conus medullaris and cauda equina. No evidence of intrinsic cord lesions, syrinx, or abnormal signal changes. Soft Tissues: Enlarged prostate. Vascular Structures: Normal appearance and enhancement of the abdominal aorta and other major vessels. No evidence of aneurysm, dissection, or significant atherosclerosis. IMPRESSION: 1. L4-5 and L5-S1 hypertrophic facetal arthropathy, with mild effusion and surrounding soft tissue and marrow oedematous changes of high STIR signal intensities, At L5/S1, small marginally enhancing collections/sheets seen posterior to the facets. Inflammatory changes is suggested and needs clinical correlation. 2. Straightened lumbar curve implies muscle spasm. 3. L3 focal mixed oedematous and fatty Modic changes of the vertebral end plate. 4. Sacral intraspinal jese-neural cyst, with no abnormal enhancement. 5. Spondylodegenrtaive changes with multilevel disc bulges, as above described, are most evident at the L4-5 level. Electronically signed by Ajay García 12-25-2024 07:38 AM
[2024-12-25] MEDS: ONDANSETRON INJ 2 MG/ML 2 ML VIAL IV PRN (07:49)
[2024-12-25] MEDS: MoRPHine SULFATE 2 MG/ML CARP IV PRN ×2 (07:49→20:46)
[2024-12-25] MEDS: LACTATED RINGER'S 1,000 ML IV SCH (08:27)
[2024-12-25] MEDS: PIPERACILLIN/TAZOBACTAM 4.5 GM/100 ML BAG IV SCH (09:35)
[2024-12-25] MEDS: ACETAMINOPHEN 325 MG TAB PO PRN (09:45)
--- NOTE | 2024-12-25 12:02 | Hospitalist Progress Note ---
Date of Service December 25, 2024 Assessment & Plan (1) Acute appendicitis: (2) Sepsis: (3) Sacral lesion: (4) Hyperlipidemia: (5) Sleep apnea: Plan 64yo male with history of HLP and DUSTIN presenting with two days of abdominal pain, RLQ pain and fever. Found to have acute appendicitis. Sepsis present on admission with SIRS 2/4 (Tachycardia, leukocytosis) CT imaging also revealed lesion in the sacral spine. Patient does endorse some mild difficulty urinating over the last several days as well as constipation # Sepsis due to acute appendicitis Hypotensive on admission. lactate normal. Goal AB W/IBW sepsis targets 2544, 2181 cc. Patient has received 2200 cc fluid resuscitation. Normotensive mild tachycardia likely reactive to pain CTA/P: Acute perforated appendicitis with periappendiceal fluid without free air General Surgery consulted, reviewed case for cefazolin. Continue medical management at this time. Will need at least 3-4 days of IV antibiotics, and if stabilizing transition to orals and colonoscopy in 8 weeks. Once clinically stable and doing well interval appendectomy at that time. Continue Zosyn Follow-up PCU LR IV FM -Morphine PRN pain -Zofran PRN Nausea Prediabetes, diet controlled. No history of heart disease. Is able to complete at least 4 METS without anginal symptoms. No history of stroke/CVA. No history of blood clots. No history of bleeding complications. Denies medication allergies. Former smoker 20 years ago, no COPD. Has a history of sleep apnea. Denies regular alcohol use. Denies substance use #Sepsis present on admission - Patient with 2/4 SIRS, secondary to acute appendicitis -Continue IVF -Zosyn -Check Lactate #Sacral Lesion - patient with well defined focal space occupying lesion in the spinal canal at S2, S3, S4 vertebral level with scalloping of the sacral vertebral bodies and expansion of bony spinal canal. He endorses chronic back pain for many years which is unchanged Postvoid residual ordered. Unfortunately patient with urinary retention. Casas catheter placed. Once clinically stable and BP improved will transition to Flomax and attempt voiding trial. Outpatient follow-up with urology when stable. MRI of the lumbar spine shows L4-L5, L5-S1 hypertrophic facet arthropathy. Mild effusion and surrounding soft tissue no edematous change. Small marginally enhancing collection/sheets. Inflammatory change suggested. 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 L4-L5 multilevel disc bulges. No evidence of cauda equina. Normal cord signal intensity/morphology. Reviewed with orthospine. Soft tissue marginal enhancement suspected due to inflammatory change. No strength or sensory change suggesting operative emergency. Does have some urinary retention although suspect this is related to enlarged prostate and he has had no overflow incontinence and reports he is able to void. 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 Otherwise spine looks to be intact. Agree with facet inflammatory changes noted above. Appreciate recommendations #Hyperlipidemia -Continue Atorvastatin #DUSTIN - patient compliant with CPAP -Continue CPAP [facility] Admission and Anticipated Discharge Date Admission Date: December 25, 2024 Subjective Seen at the bedside. Reports his abdominal discomfort is tolerable when he receives morphine for pain control but does increase between doses and continues to endorse pain worst at his right lower quadrant but which radiates over his entire abdomen. He has had a feeling of fever and chills for the last few days which continued last night. No nausea/vomiting. He reports that he does tend to void frequently although does not think he has difficulty peeing. He denies lower extremity numbness/tingling or strength l oss. Denies saddle anesthesia. He reports he does get some chronic low lumbar/sacral back pain and intermittent right shoulder pain for many years. Sees a chiropractor for this which has seemed to help in the past. Physical Exam Physical Exam: General: A&Ox3. NAD. Cooperative. HEENT: Atraumatic, normocephalic. Pulm: CTAB A&P. -wheezes, -rales, -rhonchi. Symmetrical chest rise. No increase in work of breathing. No respiratory distress. Cardiac: RRR, -mrg. Radial pulses intact and symmetrical. Abdominal: Diffusely tender, focally tender in the right lower quadrant, mild rebound tenderness. + Guarding. Extremities: Moves all extremities equally. Sensation soft touch in feet bilaterally is intact. Results & Data Results & Data Vital Signs (Past 12 Hours) Vital Signs Temp Pulse Pulse Resp BP BP Pulse Ox 12/25/24 11:52 37.4 C 107 H 18 105/66 93 12/25/24 08:40 37.8 C H 100 H 16 128/73 97 12/25/24 08:03 111 H 20 128/76 93 12/25/24 07:00 98 H 15 90/52 L 100 12/25/24 04:00 111 H 16 136/79 95 12/25/24 03:24 111 H 12/25/24 03:20 109 H 15 131/80 96 12/25/24 03:20 36.7 C 20 131/80 96 12/25/24 02:35 37.9 C H 119 H 136/85 96 O2 Del Method 12/25/24 11:52 Room Air 12/25/24 08:40 Room Air 12/25/24 08:03 Room Air 12/25/24 07:00 Room Air 12/25/24 04:00 Room Air 12/25/24 03:24 12/25/24 03:20 Room Air 12/25/24 03:20 Room Air 12/25/24 02:35 Room Air PG Care Time/CCT Total # of Minutes Spent Total Time Spent with Patient: Total time spent is greater than 50% in coordination of care (as documented) at patient's floor/unit and/or counseling patient: Coding Level of Care Code 17459 SUB INP/OBS CARE 3/50MIN Diagnoses Acute appendicitis K35.80 Acute appendicitis type: unspecified acute appendicitis type Sepsis A41.9 Sacral lesion M53.3 Hyperlipidemia E78.5 Sleep apnea G47.30 (1) Acute appendicitis Acute appendicitis type: unspecified acute appendicitis type Qualified Code(s): K35.80 - Unspecified acute appendicitis
[2024-12-25] MEDS: LACTATED RINGER'S 500 ML IV ONE (12:22)
--- NOTE | 2024-12-25 13:45 | Surgery Consultation ---
Date of Consultation December 25, 2024 Assessment & Plan (1) Acute appendicitis: (2) Sepsis: Plan 64 yo male with two day history of lower abdominal pain with associated fever, chills, and low appetite presented to ED. Leukocytosis of 19k. CT scan with dilated appendix with significant periappendiceal inflammation and circumferential thickening of the cecum likely due to perforated appendicitis. Exam with generalized tenderness and guarding but not rigid and no peritonitis. Discussed imaging findings with patient and conservative nonoperative management wtih IV antibiotics, pain management, antiemetics as needed, IV fluids and bowel rest. He likely will require at least 3-4 days of IV antibiotics. Discussed if need to intervene operatively he would require ileocecectomy with higher risks given the cecal inflammation. Discussed need for colonoscopy down the road and interval appendectomy. Surgery will follow along closely, [place] surgery covering the weekend. Continue medical management. Discussed with Dr. Luz who agrees with above. History of Present Illness Reason for Consultation: Perforated appendicitis Requesting Physician: Lila Carroll DO Attending Physician: Lila Carroll DO History of Present Illness Mr. Wyman is a 64 yo male who presented to ED with complaint of lower abdominal pain that started Saturday night increasing in severity with associated chills and fever. Fever as high as 101.7 . Associated anorexia. Bowels have been regular. Some decreased urination but no burning on urination. No prior abdominal surgeries. Had a colonoscopy last year which showed two small polyps and diverticulosis however no other abnormalities. No blood thinning agents. Currently rating pain about 6/10 with Morphine. Pain mostly in the lower abodmen but more in RLQ. No nausea or vomiting. Allergies Allergy/AdvReac Type Severity Reaction Status Date / Time No Known Allergies Allergy Verified 05/22/24 09:37 Home Medications Medication Instructions Recorded Confirmed Type cholecalciferol (vitamin D3) 10 10 mcg PO DAILY 10/27/20 12/25/24 History mcg (400 unit) capsule lactobacillus combination no.9 4 4,000 mmu cells PO DAILY 05/02/22 12/25/24 History billion cell capsule (Adult 50 Plus Probiotic) azelastine 137 mcg (0.1 %) nasal 1 spray intranasal BID PRN 12/11/23 12/25/24 Rx spray allergies #30 mL ibuprofen 600 mg tablet 600 mg PO QID PRN Pain 05/11/24 12/25/24 History atorvastatin 10 mg tablet 10 mg PO HS #90 tabs 07/09/24 12/25/24 Rx Auto Titrating CPAP 12/25/24 12/25/24 History CPAP Machine 12/25/24 12/25/24 History Patient History Medical History History of COVID-19 2022 Hyperlipemia Prediabetes diet controlled Sleep apnea cpap Colitis controlled at present Surgical History History of cystoscopy History of colonoscopy S/P wisdom tooth extraction Family History Father Myocardial infarction Heart disease Mother Diabetes Dementia Sister Diabetes Dementia Brother Dementia Denies family history of Ovarian cancer Prostate cancer Breast cancer Colorectal cancer Social History Smoking Status: Former smoker Tobacco Type: Cigarettes Age Started Using Tobacco: 20; Age Quit Using Tobacco: 47; packs per day: 1; Second Hand Exposure: No; Do You Dip or Chew Tobacco: No; Hx Alcohol Use: No Hx Substance Use: No Preferred Language: Austrian Communication Ability: Effective Visual Impairment: No Limitations Hearing Ability: Normal [employer] Contact Printer Required: No Beliefs That Will Affect Care: None marital status: Current Living Situation: Spouse current occupational status: employed current occupation: senior project leader/team lead How many Children do You have: 1 Feels Safe at Home: Yes Childhood Exposure to Second-Hand Smoke: Yes Diet: regular caffeine: Yes during the past year weight has: remained stable Dental Care, Regularly: Yes Physical Activity Frequency: 5-6 Times per Week Seatbelt Use: always Sunscreen Use: Yes Assistive Devices: None Review of Systems Review of Systems: All systems reviewed & are unremarkable except as noted in HPI & below Physical Exam Constitutional: WD/WN, vitals as above cooperative and comfortable; no acute distress and not ill appearing Respiratory: normal respiratory effort, lungs clear to auscultation Cardiovascular: Rate/Rhythm: + tachycardic Heart Sounds: normal S1 and normal S2 Gastrointestinal (Abdomen): Inspection/Auscultation: abdomen normal to inspection and + abdomen distended (mild) Percussion/Palpation: + abdomen tender (generalized tenderness but more in RLQ ), + guarding (voluntary guarding of the RLQ) and abdomen soft; abdomen not rigid and abdomen not firm Skin: no rashes, warm and dry Psychiatric: A+Ox3, euthymic affect Results & Data Vital Signs (Past 12 Hours) Vital Signs Temp Pulse Pulse Resp BP BP Pulse Ox 12/25/24 11:52 37.4 C 107 H 18 105/66 93 12/25/24 08:40 37.8 C H 100 H 16 128/73 97 12/25/24 08:30 12/25/24 08:03 111 H 20 128/76 93 12/25/24 07:39 12/25/24 07:00 98 H 15 90/52 L 100 12/25/24 04:00 111 H 16 136/79 95 12/25/24 03:24 111 H 12/25/24 03:20 109 H 15 131/80 96 12/25/24 03:20 36.7 C 20 131/80 96 12/25/24 02:35 37.9 C H 119 H 136/85 96 Pulse Ox O2 Del Method O2 Del Method O2 Flow Rate 12/25/24 11:52 Room Air 12/25/24 08:40 Room Air 12/25/24 08:30 Room Air 12/25/24 08:03 Room Air 12/25/24 07:39 97 Room Air 0 12/25/24 07:00 Room Air 12/25/24 04:00 Room Air 12/25/24 03:24 12/25/24 03:20 Room Air 12/25/24 03:20 Room Air 12/25/24 02:35 Room Air Laboratory Results 12/25/24 12/25/24 12/25/24 Range/Units 10:13 03:13 02:59 WBC (4.8-10.8) K/ul RBC (4.70-6.10) M/uL Hgb (14.0-18.0) g/dl POC Hgb 17.0 (14.0-18.0) g/dl Hct (42.0-52.0) % POC Hct 50 (42-52) % MCV (80.0-100.0) fL MCH (25.0-34.0) pg MCHC (32.0-36.0) g/dL RDW Std Deviation (36.4-46.3) fL RDW Coeff of Trey (11.5-14.5) % Plt Count (130-400) K/uL MPV (9.4-12.4) fL Immature Gran % (Auto) % Neut % (Auto) % Lymph % (Auto) % O'Brien % (Auto) % Eos % (Auto) % Baso % (Auto) % Neut # (Auto) (1.40-6.50) K/uL Lymph # (Auto) (1.20-3.40) K/uL O'Brien # (Auto) (0.11-0.59) K/uL Eos # (Auto) (0.00-0.50) K/uL Baso # (Auto) (0.00-0.20) K/uL Immature Gran # (Auto) (0.01-0.20) K/uL POC Sodium 139 (135-144) mmol/L Sodium (136-145) mmol/L POC Potassium 3.7 (3.3-5.0) mmol/L Potassium (3.5-5.1) mmol/L POC Chloride 101 (101-112) mmol/L Chloride (98-107) mmol/L Carbon Dioxide (21-32) mmol/L POC Total CO2 20 L (24-31) mmol/L Anion Gap (3-11) POC Anion Gap 22.0 (16-25) mmol/L POC BUN 11 (7-18) mg/dl BUN (6-23) mg/dl Creatinine (0.6-1.4) mg/dl POC Creatinine 1.0 (0.6-1.3) mg/dl Est Cr Clr Drug Dosing ml/min eGFR BUN/Creatinine Ratio (10-20) Glucose (70-99(Fasting)) mg/dl POC Glucose (other) 123 H (70-99) mg/dl Lactate 1.1 (0.4-2.0) mmol/L Calcium (8.6-10.3) mg/dl POC Ioniz Calcium Pawel 1.12 (1.12-1.32) mmol/l Total Bilirubin (0.2-1.0) mg/dl AST (13-39) U/L ALT (7-52) U/L Alkaline Phosphatase (34-104) U/L Total Protein (6.0-8.3) gm/dl Albumin (3.4-5.0) gm/dl Globulin (2.5-4.0) gm/dl Albumin/Globulin Ratio (0.9-2) Lipase (11-82) U/L Urine Color Yellow Urine Appearance Clear (Clear) Urine pH 6.0 (4.5-7.5) Ur Specific Force 1.022 (1.000-1.030) Urine Protein Trace H (Negative) Urine Glucose (UA) Negative (Negative) Urine Ketones 4+ H (Negative) Urine Blood Negative (Negative) Urine Nitrite Negative (Negative) Urine Bilirubin Negative (Negative) Urine Urobilinogen Negative (Negative) Ur Leukocyte Esterase Negative (Negative) Urine WBC (Auto) 0-5 (0-5) /hpf Urine RBC (Auto) 0-2 (0-2) /hpf U Hyaline Cast (Auto) 0-2 (0-2) /lpf U Epithel Cells (Auto) 0-2 (0-2) /hpf Urine Bacteria (Auto) None Seen (None Seen) 12/25/24 Range/Units 02:54 WBC 19.70 H (4.8-10.8) K/ul RBC 5.26 (4.70-6.10) M/uL Hgb 16.6 (14.0-18.0) g/dl POC Hgb (14.0-18.0) g/dl Hct 47.1 (42.0-52.0) % POC Hct (42-52) % MCV 89.5 (80.0-100.0) fL MCH 31.6 (25.0-34.0) pg MCHC 35.2 (32.0-36.0) g/dL RDW Std Deviation 43.8 (36.4-46.3) fL RDW Coeff of Trey 13.3 (11.5-14.5) % Plt Count 209 (130-400) K/uL MPV 10.9 (9.4-12.4) fL Immature Gran % (Auto) 0.4 % Neut % (Auto) 83.3 % Lymph % (Auto) 8.3 % O'Brien % (Auto) 7.7 % Eos % (Auto) 0.1 % Baso % (Auto) 0.2 % Neut # (Auto) 16.42 H (1.40-6.50) K/uL Lymph # (Auto) 1.64 (1.20-3.40) K/uL O'Brien # (Auto) 1.51 H (0.11-0.59) K/uL Eos # (Auto) 0.01 (0.00-0.50) K/uL Baso # (Auto) 0.04 (0.00-0.20) K/uL Immature Gran # (Auto) 0.08 (0.01-0.20) K/uL POC Sodium (135-144) mmol/L Sodium 137 (136-145) mmol/L POC Potassium (3.3-5.0) mmol/L Potassium 3.7 (3.5-5.1) mmol/L POC Chloride (101-112) mmol/L Chloride 101 (98-107) mmol/L Carbon Dioxide 23 (21-32) mmol/L POC Total CO2 (24-31) mmol/L Anion Gap 13 H (3-11) POC Anion Gap (16-25) mmol/L POC BUN (7-18) mg/dl BUN 11 (6-23) mg/dl Creatinine 1.04 (0.6-1.4) mg/dl POC Creatinine (0.6-1.3) mg/dl Est Cr Clr Drug Dosing 73.6 ml/min eGFR 81.18 BUN/Creatinine Ratio 10.6 (10-20) Glucose 120 H (70-99(Fasting)) mg/dl POC Glucose (other) (70-99) mg/dl Lactate (0.4-2.0) mmol/L Calcium 9.7 (8.6-10.3) mg/dl POC Ioniz Calcium Pawel (1.12-1.32) mmol/l Total Bilirubin 1.8 H (0.2-1.0) mg/dl AST 18 (13-39) U/L ALT 29 (7-52) U/L Alkaline Phosphatase 64 (34-104) U/L Total Protein 8.6 H (6.0-8.3) gm/dl Albumin 5.2 H (3.4-5.0) gm/dl Globulin 3.4 (2.5-4.0) gm/dl Albumin/Globulin Ratio 1.5 (0.9-2) Lipase 12 (11-82) U/L Urine Color Urine Appearance (Clear) Urine pH (4.5-7.5) Ur Specific Force (1.000-1.030) Urine Protein (Negative) Urine Glucose (UA) (Negative) Urine Ketones (Negative) Urine Blood (Negative) Urine Nitrite (Negative) Urine Bilirubin (Negative) Urine Urobilinogen (Negative) Ur Leukocyte Esterase (Negative) Urine WBC (Auto) (0-5) /hpf Urine RBC (Auto) (0-2) /hpf U Hyaline Cast (Auto) (0-2) /lpf U Epithel Cells (Auto) (0-2) /hpf Urine Bacteria (Auto) (None Seen) Diagnostic Findings Addendum Report EXAM: CT abd pelvis IV con only ADDENDUM: [facility] was called at [phone] at 04:13 AM TORPEDO MAN, 12/25/2024, and Keira Bautista was informed regarding the presence of critical medical findings in the report and she confirmed that they have received the report Electronically signed by Gopal White 12-25-2024 05:25 AM ADDENDUM END ADDENDUM Addendum Report EXAM: CT abd pelvis IV con only ADDENDUM: [facility] ER was called at [phone] at 04:13 AM TORPEDO MAN, 12/25/2024, and Keira Bautista was informed regarding the presence of critical medical findings in the report and she confirmed that they have received the report Electronically signed by Gopal White 12-25-2024 05:25 AM ADDENDUM END EXAM: CT abd pelvis IV con only CLINICAL HISTORY: lower abd pain, fever TECHNIQUE: Multiple contiguous axial images were obtained from the level of diaphragm to the pubis symphysis. This study was acquired after the IV administration of iodinated contrast material, given the patient's indications for the examination. If IV contrast material had not been administered, the likelihood of detecting abnormalities relevant to the patient's condition would have been substantially decreased. Coronal and sagittal reformatted images were generated and reviewed to improve anatomic localization and optimize lesion detection. CT scan was performed according to ALARA (as low as reasonably achievable). COMPARISON: None. FINDINGS: The visualized lung bases are clear. ABDOMEN/PELVIS: The liver is normal in size and attenuation. No focal liver lesions are seen. There is no intra or extrahepatic biliary ductal dilatation. Hepatic vasculature is patent. The gallbladder is unremarkable. The spleen, pancreas, and adrenal glands are unremarkable. The kidneys are normal in size and attenuation. There is no hydronephrosis or perinephric fat stranding. No renal calculi or renal masses are identified. The ureters are normal in caliber and no ureteral calculi are seen. Diffuse circumferential homogeneously enhancing irregular wall thickening of urinary bladder noted, maximum wall thickness of 7 mm ; possible changes of cystitis or bladder outlet obstruction. Suggested clinicopathological correlation. Prostate appears enlarged in size, measures 38 x 54 x 46 mm, volume 47 g with median lobe hypertrophy indenting the urinary bladder base. Approximately 14 mm size fluid filled inflamed appendix with thick enhancing bearden seen in right iliac fossa region. Mild to moderate periappendicular fat stranding noted. Mild periappendicular free fluid noted. Few subcentimeter sized homogeneously enhancing discrete mesenteric lymph nodes seen in right iliac fossa and right lumbar region. No evidence of calcification, conglomeration or necrosis seen. Diffuse circumferential homogeneously enhancing edematous wall thickening of base of cecum noted, maximum wall thickness of 7 mm, suggestive of changes of secondary typhlitis. Multiple air and content filled outpouchings are seen arising from sigmoid colon ; suggestive of sigmoid colon diverticulosis. No evident signs of diverticulitis. The aorta is normal in caliber. Calcified atheromatous changes noted in aorta. Spondylotic changes seen in lumbar spine. A well defined focal space occupying lesion seen in spinal canal at the level of S2, S3, S4 vertebrae. It causes posterior scalloping of sacral vertebral bodies (S2, S3, S4). It causes expansion of bony spinal canal. It measures 5 cm in craniocaudal axis and 2.3 cm in nara-posterior dimension. Requires MRI lumbosacral spine for further evaluation. IMPRESSION: 1. Changes of acute appendicitis. 2. Prostatomegaly (volume 47 g) with median lobe hypertrophy indenting urinary bladder base. 3. Diffuse circumferential irregular wall thickening of urinary bladder; possible changes of cystitis or bladder outlet obstruction. Suggested clinical correlation. 4. Changes of secondary typhlitis. 5. Reactive mesenteric lymphadenitis. 6. Sigmoid colon diverticulosis. No evident signs of diverticulitis. 7. Well defined focal space occupying lesion in spinal canal at S2, S3, S4 vertebrae level, causing posterior scalloping of sacral vertebral bodies (S2, S3, S4) and expansion of bony spinal canal. Requires MRI lumbosacral spine for further evaluation. I personally reviewed CT scan images and concur with above findings (1) Acute appendicitis Acute appendicitis type: unspecified acute appendicitis type Qualified Code(s): K35.80 - Unspecified acute appendicitis
[2024-12-25] MEDS: ATORVASTATIN 10 MG TAB PO SCH (20:46)
[2024-12-26 08:25] LABS: Hematocrit (blood only) 41.5 % (42.0-52.0); Hemoglobin 14.1 g/dl (14.0-18.0); Mean Corpuscular Hemoglobin 30.9 pg (25.0-34.0); Mean Platelet Volume 11.1 fL (9.4-12.4); Platelet Count 168 K/uL (130-400); RDW Coefficient of Variation 13.8 % (11.5-14.5); RDW Standard Deviation 46.1 fL (36.4-46.3); Red Blood Count 4.56 M/uL (4.70-6.10); White Blood Count 17.66 K/ul (4.8-10.8)
[2024-12-26 08:43] LABS: Albumin Level 3.8 gm/dl (3.4-5.0); BUN Creatinine Ratio 8.1 (10-20); Bilirubin Direct 0.5 mg/dl (0-0.2); Bilirubin,Total 1.8 mg/dl (0.2-1.0); Calcium 8.9 mg/dl (8.6-10.3); Creatinine Clr Calc Pharmacy 89.1 ml/min; Potassium 3.9 mmol/L (3.5-5.1); Total Protein 6.7 gm/dl (6.0-8.3)
[2024-12-26] MEDS: D5W AND LACTATED RINGERS 1,000 ML IV SCH (08:46)
--- NOTE | 2024-12-26 10:12 | Hospitalist Progress Note ---
Date of Service December 26, 2024 Assessment & Plan (1) Acute appendicitis: (2) Sepsis: (3) Sacral lesion: (4) Hyperlipidemia: (5) Sleep apnea: Plan 64yo male with history of HLP and DUSTIN presenting with two days of abdominal pain, RLQ pain and fever. Found to have acute appendicitis. Sepsis present on admission with SIRS 2/4 (Tachycardia, leukocytosis) CT imaging also revealed lesion in the sacral spine. Patient does endorse some mild difficulty urinating over the last several days as well as constipation # Sepsis due to acute appendicitis Hypotensive on admission. lactate normal. Goal AB W/IBW sepsis targets 2544, 2181 cc. Achieved appropriate resuscitation on admission. Normotensive subsequently mild tachycardia likely reactive to pain has improved CTA/P: Acute perforated appendicitis with periappendiceal fluid without free air General Surgery consulted, no operative intervention recommended. continue medical management at this time. Will need at least 3-4 days of IV antibiotics, and if stabilizing transition to orals and colonoscopy in 8 weeks. Once clinically stable and doing well interval appendectomy at that time. Has had slight clinical progression 12/26 but remains with significant diffuse pain and recommend continuing n.p.o. at this time. reviewed by surgery who agree with ongoing medical management. continue IV antibiotics. Capone's at 125 cc/h added for IV FM Continue Zosyn Follow-up PCU -Morphine PRN pain -Zofran PRN Nausea Prediabetes, diet controlled. No history of heart disease. Is able to complete at least 4 METS without anginal symptoms. No history of stroke/CVA. No history of blood clots. No history of bleeding complications. Denies medication allergies. Former smoker 20 years ago, no COPD. Has a history of sleep apnea. Denies regular alcohol use. Denies substance use #Sepsis present on admission - Secondary to acute appendicitis - Acute sepsis resolved. Management of appendicitis as noted #Sacral Lesion - patient with well defined focal space occupying lesion in the spinal canal at S2, S3, S4 vertebral level with scalloping of the sacral vertebral bodies and expansion of bony spinal canal. He endorses chronic back pain for many years which is unchanged Postvoid residual ordered. Unfortunately patient with urinary retention. Casas catheter placed. Once clinically stable and BP improved will transition to Flomax and attempt voiding trial. Outpatient follow-up with urology when stable. MRI of the lumbar spine shows L4-L5, L5-S1 hypertrophic facet arthropathy. Mild effusion and surrounding soft tissue no edematous change. Small marginally enhancing collection/sheets. Inflammatory change suggested. 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 L4-L5 multilevel disc bulges. No evidence of cauda equina. Normal cord signal intensity/morphology. Reviewed with orthospine. Soft tissue marginal enhancement suspected due to inflammatory change. No strength or sensory change suggesting operative emergency. Does have some urinary retention although suspect this is related to enlarged prostate and he has had no overflow incontinence and reports he is able to void. 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 Otherwise spine looks to be intact/normal . Agree with facet inflammatory changes noted above. Appreciate recommendations #Hyperlipidemia -Continue Atorvastatin #DUSTIN - patient compliant with CPAP -Continue CPAP qHS DVT prophylaxis: No surgical intervention anticipated at this time, started on Lovenox prophylaxis CODE STATUS: Full code Admission and Anticipated Discharge Date Admission Date: December 25, 2024 Subjective Seen at the bedside. No overnight events. Temperature 38.6 at 7 AM, prior Tmax was 37.9 at 0235 hrs. Reports he still feels fatigued and tired. Abdominal pain seems to be slightly improved compared to prior. Has not had flatus yet. Nausea is still present but a little improved. Still remains tender mostly in the right lower quadrant still with some diffuse and left lower quadrant pain, slightly better from prior but not resolved. No chest pain chest pressure shortness of breath or difficulty breathing. Was inquiring after possible diet advancement. Given ongoing peritoneal symptoms, lack of flatus, and appendicitis with perforated fluid did recommend continued n.p.o. until he has had further clinical progression to which he is agreeable. Physical Exam Physical Exam: General: A&Ox3. NAD. Cooperative. HEENT: Atraumatic, normocephalic. Pulm: CTAB A&P. -wheezes, -rales, -rhonchi. Symmetrical chest rise. No increase in work of breathing. No respiratory distress. Cardiac: RRR, -mrg. Radial pulses intact and symmetrical. Abdominal: Diffusely tender most focally in the right lower quadrant. Guarding, rebound and left lower quadrant is improved compared to prior although still has mild generalized discomfort. Extremities: Moves all extremities equally. Sensation soft touch in feet bilaterally is intact. Results & Data Results & Data Vital Signs (Past 12 Hours) Vital Signs Temp Pulse Resp BP Pulse Ox O2 Del Method 12/26/24 07:01 38.6 C H 63 18 129/71 98 Room Air 12/26/24 02:59 36.8 C 99 H 18 122/79 96 Room Air 12/25/24 23:31 36.8 C 89 18 132/68 96 Room Air PG Care Time/CCT Total # of Minutes Spent Total Time Spent with Patient: Total time spent is greater than 50% in coordination of care (as documented) at patient's floor/unit and/or counseling patient: Coding Level of Care Code 48065 SUB INP/OBS CARE 3/50MIN Diagnoses Acute appendicitis K35.80 Acute appendicitis type: unspecified acute appendicitis type Sepsis A41.9 Sacral lesion M53.3 Hyperlipidemia E78.5 Sleep apnea G47.30 (1) Acute appendicitis Acute appendicitis type: unspecified acute appendicitis type Qualified Code(s): K35.80 - Unspecified acute appendicitis
--- NOTE | 2024-12-26 10:12 | Surgery Progress Note ---
<Statement entered by Ashley Sousa, DO - 12/26/24 10:57> I have seen and examined this patient this am in follow up over weekend coverage for the consulting surgical service who recommended and initiated non-surgical management with admission to medical service on IV abx and interval appendectomy in 6 weeks. The patient did spike a fever this am but his leukocytosis is improving and he does state he feels a little better today than he did yesterday. He is currently HD stable. If fevers continue, may need to consider operative exploration. Date of Service December 26, 2024 Assessment & Plan (1) Acute appendicitis: Plan: CT from ER was reviewed by covering surgeon at admission There was concern for ruptured appendix Conservative treatment was initiated with IV abx and NPO Today Pt reports abd pain still present but less than yesterday +fever this AM , denies n/v abd soft , TTP , no s/s peritonitis at this time WBC downtrending from yesterday 17 (19) , continue IV ABX and NPO today Will follow along closely pt seen and examined with Dr Sousa Admission and Anticipated Discharge Date Admission Date: December 25, 2024 Subjective pt febrile this AM denies n/v , Cp , sob abd less than yesterday Review of Systems Constitutional: no fever and no chills Respiratory: no dyspnea Cardiovascular: no chest pain Gastrointestinal: + abdominal pain; no nausea and no vomit ing Physical Exam Constitutional: cooperative and comfortable; no acute distress Respiratory: normal respiratory effort; no respiratory distress Cardiovascular: Rate/Rhythm: regular rate Gastrointestinal (Abdomen): Inspection/Auscultation: abdomen not distended Percussion/Palpation: + abdomen tender and abdomen soft Results & Data Vital Signs (Past 12 Hours) Vital Signs Temp Pulse Resp BP Pulse Ox O2 Del Method 12/26/24 07:01 101.5 F H 63 18 129/71 98 Room Air 12/26/24 02:59 98.2 F 99 H 18 122/79 96 Room Air 12/25/24 23:31 98.2 F 89 18 132/68 96 Room Air Results CBC w Diff Results: RBC 4.56 M/uL (4.70-6.10) L 12/26/24 WBC 17.66 K/ul (4.8-10.8) H 12/26/24 Hgb 14.1 g/dl (14.0-18.0) 12/26/24 Hct 41.5 % (42.0-52.0) L 12/26/24 MCV 91.0 fL (80.0-100.0) 12/26/24 MCH 30.9 pg (25.0-34.0) 12/26/24 MCHC 34.0 g/dL (32.0-36.0) 12/26/24 RDW Standard Deviation 46.1 fL (36.4-46.3) 12/26/24 RDW Coefficient of Variation 13.8 % (11.5-14.5) 12/26/24 Plt Count 168 K/uL (130-400) 12/26/24 MPV 11.1 fL (9.4-12.4) 12/26/24 Neutrophils (%) (Auto) 83.3 % 12/25/24 Lymphocytes (%) (Auto) 8.3 % 12/25/24 Monocytes # (Auto) 1.51 K/uL (0.11-0.59) H 12/25/24 Eosinophils # (Auto) 0.01 K/uL (0.00-0.50) 12/25/24 Immature Granulocyte % (Auto) 0.4 % 12/25/24 Neutrophils # (Auto) 16.42 K/uL (1.40-6.50) H 12/25/24 Lymphocytes # (Auto) 1.64 K/uL (1.20-3.40) 12/25/24 Monocytes # (Auto) 1.51 K/uL (0.11-0.59) H 12/25/24 Eosinophils # (Auto) 0.01 K/uL (0.00-0.50) 12/25/24 Basophils # (Auto) 0.04 K/uL (0.00-0.20) 12/25/24 Immature Granulocyte # (Auto) 0.08 K/uL (0.01-0.20) 5 PG Care Time/CCT Total # of Minutes Spent Total Time Spent with Patient: Total time spent is greater than 50% in coordination of care (as documented) at patient's floor/unit and/or counseling patient: Coding Level of Care Code 34847 SUB INP/OBS CARE 10/10MIN Diagnoses Acute appendicitis K35.80 Acute appendicitis type: unspecified acute appendicitis type (1) Acute appendicitis Acute appendicitis type: unspecified acute appendicitis type Qualified Code(s): K35.80 - Unspecified acute appendicitis
[2024-12-27] MEDS: MELATONIN 3 MG TAB PO PRN (00:42)
[2024-12-27 08:36] LABS: Basophils # (auto) 0.03 K/uL (0.00-0.20); Basophils % (auto) 0.2 %; Eosinophils # (auto) 0.05 K/uL (0.00-0.50); Eosinophils % (auto) 0.3 %; Hematocrit (blood only) 41.5 % (42.0-52.0); Hemoglobin 14.7 g/dl (14.0-18.0); Immature Granulocytes # (auto) 0.07 K/uL (0.01-0.20); Immature Granulocytes % (auto) 0.4 %; Lymphocytes # (auto) 1.19 K/uL (1.20-3.40); Lymphocytes % (auto) 6.4 %; Mean Corpuscular Hemoglobin 31.5 pg (25.0-34.0); Mean Corpuscular Hgb Conc 35.4 g/dL (32.0-36.0); Mean Corpuscular Volume 89.1 fL (80.0-100.0); Mean Platelet Volume 10.7 fL (9.4-12.4); Monocytes % (auto) 4.9 %; Neutrophils # (auto) 16.22 K/uL (1.40-6.50); Neutrophils % (auto) 87.8 %; Platelet Count 185 K/uL (130-400); RDW Coefficient of Variation 13.2 % (11.5-14.5); RDW Standard Deviation 43.5 fL (36.4-46.3); Red Blood Count 4.66 M/uL (4.70-6.10); White Blood Count 18.46 K/ul (4.8-10.8)
[2024-12-27] MEDS: ENOXAPARIN INJ 40 MG/0.4 ML SYR SQ SCH (08:49)
[2024-12-27 08:50] LABS: BUN Creatinine Ratio 9.1 (10-20); Calcium 8.9 mg/dl (8.6-10.3); Creatinine Clr Calc Pharmacy 99.5 ml/min; Potassium 3.5 mmol/L (3.5-5.1)
--- NOTE | 2024-12-27 13:56 | Hospitalist Progress Note ---
Date of Service December 27, 2024 Assessment & Plan (1) Acute appendicitis: (2) Sepsis: (3) Sacral lesion: (4) Hyperlipidemia: (5) Sleep apnea: Plan 64yo male with history of HLP and DUSTIN presenting with two days of abdominal pain, RLQ pain and fever. Found to have acute appendicitis. Manage medically at this time with close observation due to periappendiceal fluid without free air on imaging # Sepsis due to acute appendicitis Hypotensive on admission. lactate normal. Goal ABW/IBW sepsis targets 2544, 2181 cc. Achieved appropriate resuscitation on admission. Normotensive subsequently mild tachycardia likely reactive to pain has improved CTA/P: Acute perforated appendicitis with periappendiceal fluid without free air General Surgery consulted, no operative intervention recommended. continue medical management at this time. Will need at least 3-4 days of IV antibiotics, and if stabilizing transition to orals and colonoscopy in 8 weeks. Surgical risk assessment: Prediabetes, diet controlled. No history of heart disease. Is able to complete at least 4 METS without anginal symptoms. No history of stroke/CVA. No history of blood clots. No history of bleeding complications. Denies medication allergies. Former smoker 20 years ago, no COPD. Has a history of sleep apnea. Denies regular alcohol use. Denies substance use Clinically progressing 12/27 remains with some right greater than left abdominal pain but clinically improving. White count has up trended slightly. Given uptrending white count and persistent pain would keep n.p.o. for an additional day and trend. Possible clears tomorrow. If clinically worsening/ sharp rise in leukocytosis can consider repeat CT at that time Hartmans resumed, discontinue if advanced to clears #Sepsis present on admission - Secondary to acute appendicitis - Acute sepsis resolved. Management of appendicitis as noted #Sacral Lesion - patient with well defined focal space occupying lesion in the spinal canal at S2, S3, S4 vertebral level with scalloping of the sacral vertebral bodies and expansion of bony spinal canal. He endorses chronic back pain for many years which is unchanged Postvoid residual ordered. Unfortunately patient with urinary retention. Casas catheter placed. Once clinically stable and BP improved will transition to Flomax and attempt voiding trial. Outpatient follow-up with urology when stable. MRI of the lumbar spine shows L4-L5, L5-S1 hypertrophic facet arthropathy. Mild effusion and surrounding soft tissue no edematous change. Small marginally enhancing collection/sheets. Inflammatory change suggested. 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 L4-L5 multilevel disc bulges. No evidence of cauda equina. Normal cord signal intensity/morphology. Reviewed with orthospine. Soft tissue marginal enhancement suspected due to inflammatory change. No strength or sensory change suggesting operative emergency. Does have some urinary retention although suspect this is related to enlarged prostate and he has had no overflow incontinence and reports he is able to void. 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 Otherwise spine looks to be intact/normal . Agree with facet inflammatory changes noted above. Appreciate recommendations #Hyperlipidemia -Continue Atorvastatin #DUSTIN - patient compliant with CPAP -Continue CPAP qHS DVT prophylaxis: Continue Lovenox. Hold if any anticipated surgical intervention CODE STATUS: Full code Admission and Anticipated Discharge Date Admission Date: December 25, 2024 Subjective Seen at the bedside. Clinically reports he feels a little better today. Still has pain in his left and right lower quadrant, more on the right but the sensitivity to his left abdomen seems better. Denies fever/chills. Is hungry would like his diet advanced when possible. Also curious to progression. Discussed that once stable his diet will be slowly progressed over 1-3 days assuming that he remains tolerant to this and once tolerating a diet and transition to orals could potentially progress at that point. Did discuss this is a guarded best case scenario and that if he were to clinically worsen or deteriorate could require extended courses of antibiotics, repeat imaging, or surgical intervention at that time. No additional questions at bedside Physical Exam Physical Exam: General: A&Ox3. NAD. Cooperative. HEENT: Atraumatic, normocephalic. Vision and hearing grossly intact. Mucous membranes moisttacky Pulm: CTAB A&P. -wheezes, -rales, -rhonchi. Symmetrical chest rise. No increase in work of breathing. No respiratory distress. Cardiac: RRR, -mrg. Radial pulses intact and symmetrical. Abdominal: Right greater than left lower quadrant tenderness, mild rebound, improved from prior Extremities: Moves all extremities equally. Sensation soft touch in feet bilaterally is intact. Results & Data Results & Data Vital Signs (Past 12 Hours) Vital Signs Temp Pulse Pulse Resp BP Pulse Ox O2 Del Method 12/27/24 13:44 82 12/27/24 11:01 36.8 C 89 18 127/83 95 Room Air 12/27/24 07:16 36.6 C 97 H 18 131/78 94 Room Air 12/27/24 03:21 36.9 C 80 16 142/38 H 93 Room Air PG Care Time/CCT Total # of Minutes Spent Total Time Spent with Patient: Total time spent is greater than 50% in coordination of care (as documented) at patient's floor/unit and/or counseling patient: Coding Level of Care Code 08911 SUB INP/OBS CARE 3/50MIN Diagnoses Acute appendicitis K35.80 Acute appendicitis type: unspecified acute appendicitis type Sepsis A41.9 Sacral lesion M53.3 Hyperlipidemia E78.5 Sleep apnea G47.30 (1) Acute appendicitis Acute appendicitis type: unspecified acute appendicitis type Qualified Code(s): K35.80 - Unspecified acute appendicitis
[2024-12-27] MEDS: D5W AND LACTATED RINGERS 1,000 ML IV SCH (14:23)
--- NOTE | 2024-12-27 14:38 | Surgery Progress Note ---
<Statement entered by Ashley Sousa DO - 12/27/24 15:16> I have seen and examined this patient with the surgical PA and I agree with this plan. Date of Service December 27, 2024 Assessment & Plan (1) Acute appendicitis: Plan: Pt here w/ concern for appendicitis and perforation vitals stable, no further fevers since yesterday. WBC 18 (17) Pt clinically reports ongoing improvement okay for sips/chips, possible clears tomorrow if WBC improved and symptoms continue to get better We are ok with dwyer coming out if medicine is continue iv abx Admission and Anticipated Discharge Date Admission Date: December 25, 2024 Subjective Patient reports feeling ongoing improvement. Still with some pain and nausea that are getting better. Physical Exam Physical Exam: awake/alert, no distress Gastrointestinal (Abdomen): Percussion/Palpation: + abdomen tender (improving lower abdominal tenderness) and abdomen soft Results & Data Vital Signs (Past 12 Hours) Vital Signs Temp Pulse Pulse Resp BP Pulse Ox O2 Del Method 12/27/24 13:44 82 12/27/24 11:01 98.2 F 89 18 127/83 95 Room Air 12/27/24 07:16 97.9 F 97 H 18 131/78 94 Room Air 12/27/24 03:21 98.4 F 80 16 142/38 H 93 Room Air PG Care Time/CCT Total # of Minutes Spent Total Time Spent with Patient: Total time spent is greater than 50% in coordination of care (as documented) at patient's floor/unit and/or counseling patient: Coding Level of Care Code 47560 SUB INP/OBS CARE 10/10MIN Diagnoses Acute appendicitis K35.80 Acute appendicitis type: unspecified acute appendicitis type (1) Acute appendicitis Acute appendicitis type: unspecified acute appendicitis type Qualified Code(s): K35.80 - Unspecified acute appendicitis
[2024-12-28 07:01] LABS: Basophils # (auto) 0.03 K/uL (0.00-0.20); Basophils % (auto) 0.2 %; Eosinophils # (auto) 0.15 K/uL (0.00-0.50); Eosinophils % (auto) 1.1 %; Hematocrit (blood only) 36.4 % (42.0-52.0); Hemoglobin 12.7 g/dl (14.0-18.0); Immature Granulocytes # (auto) 0.07 K/uL (0.01-0.20); Immature Granulocytes % (auto) 0.5 %; Lymphocytes # (auto) 1.16 K/uL (1.20-3.40); Lymphocytes % (auto) 8.1 %; Mean Corpuscular Hemoglobin 31.4 pg (25.0-34.0); Mean Corpuscular Hgb Conc 34.9 g/dL (32.0-36.0); Mean Corpuscular Volume 90.1 fL (80.0-100.0); Mean Platelet Volume 10.7 fL (9.4-12.4); Monocytes # (auto) 1.06 K/uL (0.11-0.59); Monocytes % (auto) 7.4 %; Neutrophils % (auto) 82.7 %; Platelet Count 195 K/uL (130-400); RDW Coefficient of Variation 13.2 % (11.5-14.5); RDW Standard Deviation 43.6 fL (36.4-46.3); Red Blood Count 4.04 M/uL (4.70-6.10); White Blood Count 14.27 K/ul (4.8-10.8)
[2024-12-28 07:14] LABS: BUN Creatinine Ratio 10.6 (10-20); Calcium 7.8 mg/dl (8.6-10.3); Potassium 3.3 mmol/L (3.5-5.1)
--- NOTE | 2024-12-28 07:42 | Surgery Progress Note ---
<Statement entered by Ashley Sousa DO - 12/28/24 15:54> I have seen and examined this patient this am with the surgical team and I agree with this plan. Date of Service December 28, 2024 Assessment & Plan (1) Acute appendicitis: Plan: pt here w/ concern for appendicitis and perforation vitals stable, afebrile. WBC 14 (18) Pt clinically reports ongoing improvement. he is passing gas and loose watery BMs Will trial clears today Casas removed and he is voiding Continue to encourage ambulation/pulm toilet continue iv abx while in house as above. clinically doing well. antwan clears. no complaints. d/c planning. f/u Dr. Alicia in 1-2 weeks Admission and Anticipated Discharge Date Admission Date: December 25, 2024 Subjective Patient reports feeling fairly well. Abdominal pain continues to improve. Casas removed and he is voiding. He is passing gas and loose/watery BMs. He has some intermittent mild nausea, but has not needed anything for it of recent. He is thirsty. He reports being OOB. Physical Exam Physical Exam: awake/alert, no distress Respiratory: normal respiratory effort Gastrointestinal (Abdomen): Inspection/Auscultation: + abdomen distended (mild) Percussion/Palpation: + abdomen tender (mild discomfort to palpation across bilateral lower abdomen ) and abdomen soft Results & Data Vital Signs (Past 12 Hours) Vital Signs Temp Pulse Pulse Resp BP Pulse Ox O2 Del Method 12/28/24 07:24 98.2 F 88 18 114/76 93 Room Air 12/28/24 02:48 97.9 F 69 18 139/69 93 Room Air 12/27/24 22:49 97.7 F 89 16 129/84 97 Room Air 12/27/24 22:00 80 PG Care Time/CCT Total # of Minutes Spent Total Time Spent with Patient: Total time spent is greater than 50% in coordination of care (as documented) at patient's floor/unit and/or counseling patient: Coding Level of Care Code 87078 SUB INP/OBS CARE 10/10MIN Diagnoses Acute appendicitis K35.80 Acute appendicitis type: unspecified acute appendicitis type (1) Acute appendicitis Acute appendicitis type: unspecified acute appendicitis type Qualified Code(s): K35.80 - Unspecified acute appendicitis
[2024-12-28] MEDS: POTASSIUM CHLORIDE / WTR 10 MEQ/100 ML PLCT IV SCH (08:26)
--- NOTE | 2024-12-28 12:17 | Hospitalist Progress Note ---
Date of Service December 28, 2024 Assessment & Plan (1) Acute appendicitis: (2) Sepsis: (3) Sacral lesion: (4) Hyperlipidemia: (5) Sleep apnea: Plan 64yo male with history of HLP and DUSTIN presenting with two days of abdominal pain, RLQ pain and fever. Found to have acute appendicitis. Manage medically at this time with close observation due to periappendiceal fluid without free air on imaging # Sepsis due to acute appendicitis Hypotensive on admission. lactate normal. Goal ABW/IBW sepsis targets 2544, 2181 cc. Achieved appropriate resuscitation on admission. Normotensive subsequently mild tachycardia likely reactive to pain has improved CTA/P: Acute perforated appendicitis with periappendiceal fluid without free air General Surgery consulted, no operative intervention recommended. Significant clinical improvement 12/28 in pain. Leukocytosis remains downtrending. Diet advanced to clears. Will transition to Unasyn. Target full liquids evening 12/28 if remaining well, possible low residue breakfast 12/29 and transition to Augmentin for outpatient follow-up. Reviewed with surgical team who are in agreement, appreciate recommendations #Sepsis present on admission - Secondary to acute appendicitis - Acute sepsis resolved. Management of appendicitis as noted #Sacral Lesion - patient with well defined focal space occupying lesion in the spinal canal at S2, S3, S4 vertebral level with scalloping of the sacral vertebral bodies and expansion of bony spinal canal. He endorses chronic back pain for many years which is unchanged Postvoid residual ordered. Unfortunately patient with urinary retention. Casas catheter placed. Subsequently removed. Follow-up PVR. Continue Flomax. MRI of the lumbar spine shows L4-L5, L5-S1 hypertrophic facet arthropathy. Mild effusion and surrounding soft tissue no edematous change. Small marginally enhancing collection/sheets. Inflammatory change suggested. 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 L4-L5 multilevel disc bulges. No evidence of cauda equina. Normal cord signal intensity/morphology. Reviewed with orthospine. Soft tissue marginal enhancement suspected due to inflammatory change. No strength or sensory change suggesting operative emergency. Does have some urinary retention although suspect this is related to enlarged prostate and he has had no overflow incontinence and reports he is able to void. 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 Otherwise spine looks to be intact/normal . Agree with facet inflammatory changes noted above. Appreciate recommendations #Hyperlipidemia -Continue Atorvastatin #DUSTIN - patient compliant with CPAP -Continue CPAP qHS DVT prophylaxis: Continue Lovenox. Hold if any anticipated surgical intervention CODE STATUS: Full code Admission and Anticipated Discharge Date Admission Date: December 25, 2024 Subjective Seen at the bedside this morning. Pain is markedly improved compared to prior. Left abdominal tenderness to almost resolved, some mild right tenderness persists but greatly improved tolerance on exam. No fever chills or sweats overnight. Voiding and ambulating well. Physical Exam Physical Exam: General: A&Ox3. NAD. Cooperative. HEENT: Atraumatic, normocephalic. Vision and hearing grossly intact. Mucous membranes moisttacky Pulm: CTAB A&P. -wheezes, -rales, -rhonchi. Symmetrical chest rise. No increase in work of breathing. No respiratory distress. Cardiac: RRR, -mrg. Radial pulses intact and symmetrical. Abdominal: Mild right lower quadrant tenderness to palpation, no rebound/guarding today, left lower quadrant tenderness nearly completely absent Results & Data Results & Data Vital Signs (Past 12 Hours) Vital Signs Temp Pulse Resp BP Pulse Ox O2 Del Method 12/28/24 11:43 36.9 C 91 H 18 128/83 97 Room Air 12/28/24 07:24 36.8 C 88 18 114/76 93 Room Air 12/28/24 02:48 36.6 C 69 18 139/69 93 Room Air PG Care Time/CCT Total # of Minutes Spent Total Time Spent with Patient: Total time spent is greater than 50% in coordination of care (as documented) at patient's floor/unit and/or counseling patient: Coding Level of Care Code 10550 SUB INP/OBS CARE 3/50MIN Diagnoses Acute appendicitis K35.80 Acute appendicitis type: unspecified acute appendicitis type Sepsis A41.9 Sacral lesion M53.3 Hyperlipidemia E78.5 Sleep apnea G47.30 (1) Acute appendicitis Acute appendicitis type: unspecified acute appendicitis type Qualified Code(s): K35.80 - Unspecified acute appendicitis
[2024-12-28] MEDS: TAMSULOSIN HCL 0.4 MG CAP PO ONE (13:10)
[2024-12-28] MEDS: AMPICILLIN/SULBACTAM SOD 3,000 MG/100 ML BAG IV SCH (15:42)
--- NOTE | 2024-12-29 07:38 | Surgery Progress Note ---
Date of Service December 29, 2024 Assessment & Plan (1) Acute appendicitis: Plan: pt here w/ concern for appendicitis and perforation vitals stable, afebrile. Labs this AM are pending Pt clinically reports ongoing improvement. he is passing gas & BMs Tolerated fulls yesterday, will trial low fiber diet this AM for bfast if labs okay and tolerates diet without worsening symptoms we are okay with discharge to home today Complete course of oral abx at home f/u with dr. arthur in 1-2 weeks to discuss timing of elective interval appendectomy Admission and Anticipated Discharge Date Admission Date: December 25, 2024 Subjective Patient feeling fairly well this AM. Reported some abdominal cramping overnight, but tolerable. He is able to move around in bed much easier than prior. He is tolerating fulls without nausea/vomiting or worsening pain. He is passing gas and stool. Physical Exam Physical Exam: awake/alert, no distress Gastrointestinal (Abdomen): Percussion/Palpation: + abdomen tender (mild discomfort in the RLQ) and abdomen soft Results & Data Vital Signs (Past 12 Hours) Vital Signs Temp Pulse Pulse Resp BP Pulse Ox O2 Del Method 12/29/24 06:58 98.1 F 86 18 137/82 95 Room Air 12/29/24 02:49 97.7 F 87 18 131/86 95 Room Air 12/28/24 23:00 77 12/28/24 22:25 97.7 F 89 17 121/74 94 Room Air 12/28/24 19:39 98.1 F 111 H 18 133/82 94 Room Air PG Care Time/CCT Total # of Minutes Spent Total Time Spent with Patient: Total time spent is greater than 50% in coordination of care (as documented) at patient's floor/unit and/or counseling patient: Coding Level of Care Code 48136 SUB INP/OBS CARE 10/10MIN Diagnoses Acute appendicitis K35.80 Acute appendicitis type: unspecified acute appendicitis type (1) Acute appendicitis Acute appendicitis type: unspecified acute appendicitis type Qualified Code(s): K35.80 - Unspecified acute appendicitis
--- NOTE | 2024-12-29 08:18 | Discharge Summary ---
Discharge Summary Date of Service December 29, 2024 Principal Dx & Hospital Course #1 = Principal Diagnosis (1) Acute appendicitis: (2) Sepsis: (3) Sacral lesion: (4) Hyperlipidemia: (5) Sleep apnea: Plan 64yo male with history of HLP and DUSTIN presenting with two days of abdominal pain, RLQ pain and fever. Found to have acute appendicitis. Manage medically at this time with close observation due to periappendiceal fluid without free air on imaging To do as outpatient: 1: Complete 10 days of Augmentin for appendicitis with periappendicular fluid suggestive of contained perforation without free air 2: Follow-up with general surgery for interval appendectomy 3: Routine follow-up with PCP. Should have CBC with in 1 week to ensure stability. Adjustment of antibiotic course if needed based on clinical reassessment # Sepsis due to acute appendicitis Hypotensive on admission. lactate normal. Goal ABW/IBW sepsis targets 2544, 2181 cc. Achieved appropriate resuscitation on admission. Normotensive subsequently mild tachycardia likely reactive to pain has improved CTA/P: Acute perforated appendicitis with periappendiceal fluid without free air General Surgery consulted, no operative intervention recommended. Clinically progressed, was weaned to Unasyn and had diet slowly advanced. Tolerating a low residue diet with Unasyn well on 12/29 Was discharged to complete 10 days of Augmentin as outpatient with follow-up to general surgery for interval appendectomy Patient did have a colonoscopy 05/22/2024 and was recommended for 5-year follow- up at that time #Sacral Lesion - patient with well defined focal space occupying lesion in the spinal canal at S2, S3, S4 vertebral level with scalloping of the sacral vertebral bodies and expansion of bony spinal canal. He endorses chronic back pain for many years which is unchanged Postvoid residual ordered. Unfortunately patient with urinary retention. Casas catheter placed. Subsequently removed. Follow-up PVR. Continue Flomax. MRI of the lumbar spine shows L4-L5, L5-S1 hypertrophic facet arthropathy. Mild effusion and surrounding soft tissue no edematous change. Small marginally enhancing collection/sheets. Inflammatory change suggested. 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 L4-L5 multilevel disc bulges. No evidence of cauda equina. Normal cord signal intensity/morphology. Reviewed with orthospine. Soft tissue marginal enhancement suspected due to inflammatory change. No strength or sensory change suggesting operative em ergency. Does have some urinary retention although suspect this is related to enlarged prostate and he has had no overflow incontinence and reports he is able to void. 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 Otherwise spine looks to be intact/normal . Agree with facet inflammatory changes noted above. Appreciate recommendations Admission HPI Per Admitting Provider Austen Wyman is a pleasant 64yo male with history of HLP and DUSTIN presenting with two days of abdominal pain. Patient began feeling "off" on 12/23/24 with some lower abdominal discomfort and poor appetite. On 12/24/24 he continued to not feel well -ongoing lower abdominal pain. He developed a fever during the da y. Last night he was unable to sleep and had worsning RLQ abdominal pain as well as ongoing fever which prompted him to come to the ER. Patient complaining of abdominal pain Also mentions some abdominal bloating He denies chest pain, cough, SOB. Denies nausea/vomiting/diarrhea. He reports some very minor difficulty urinating over the last several days and some constipation as well. Otherwise denies numbness/tingling/weakness. No additional complaints at this time. In the ER he has elevated temperature at 37.9, tachycardic at 111bpm ER Course: NSS Tylenol Morphine Zofran Zosyn Discharge Exam General: A&Ox3. NAD. Cooperative. HEENT: Atraumatic, normocephalic. Vision and hearing grossly intact. Mucous membranes moist Pulm: CTAB A&P. -wheezes, -rales, -rhonchi. Symmetrical chest rise. No increase in work of breathing. No respiratory distress. Cardiac: RRR, -mrg. Radial pulses intact and symmetrical. Abdominal: Nontender to palpation, no rebound/guarding on exam today Discharge Plan Discharge Items Patient Disposition: Home - Self-Care Reason For Visit: ABDOMINAL PAIN Discharge Diagnosis: Perforated appendicitis Condition on Discharge: Fair Activity: As commented below Non-emergency contact: Primary Care Provider Call non-emergency contact if: you have any medication questions, your symptoms worsen and your pain is not controlled Follow-up/Referrals: Kevin Alicia MD [Physician] - (please call to schedule follow up in the office in 2 weeks) Gopal Alicia DO [Primary Care Provider] - 12/30/24 11:20 am (Hospital follow up scheduled Mirna 16 at 11:[address] Alicia) Diet: Low Fiber Addtl Attending Provider Instructions: You are seen in the hospital for appendicitis with periappendiceal fluid suggestive of contained perforation. You did not show any free air in the abdomen and did not require acute surgical intervention. You gradually improved on antibiotics and had your diet advanced to a low residue diet. You did have some urinary retention for which you were started on Flomax, and were subsequently able to void well. An MRI of your lumbar spine showed a large cyst without impingement on the spinal cord or nerves. This was discussed with spinal surgery, no operative intervention or medical management is recommended for this. You did have some inflammatory changes at L4-L5, L5-S1 again for which surgery is not recommended. If you develop any weakness or numbness/tingling in the lower extremities you should have this reevaluated by your primary care physician. You have been started on an antibiotic, Augmentin. Please continue to take Augmentin by mouth twice daily for 10 more days. You are being scheduled for follow-up with surgery for an interval appendectomy. Your follow-up providers may adjust the duration of your antibiotics based on your progression. If you develop any new or worsening symptoms including fever, chills, sweats, chest pain, chest pressure, difficulty breathing, uncontrolled nausea/vomiting, rash, wheezing, passing out or nearly passing out, bleeding, black/bloody bowel movements, or other new or concerning symptoms please call your primary care physician, or call 911 for re-evaluation in the emergency department if you are very concerned. Pending Studies at Discharge: No Stand-Alone Forms: My [facility], Smoking Cessation Medications and DC Order Prescriptions: New amoxicillin-pot clavulanate 875-125 mg tablet 1 tab PO Q12H 10 Days Qty: 20 0RF Continued azelastine 137 mcg (0.1 %) aerosol,spray 1 spray intranasal BID PRN (Reason: allergies) Qty: 30 1RF Rx Instructions: otc/no fill history administer into each nostril atorvastatin 10 mg tablet 10 mg PO HS Qty: 90 3RF cholecalciferol (vitamin D3) 10 mcg (400 unit) capsule 10 mcg PO DAILY Rx Instructions: otc unable to verify Adult 50 Plus Probiotic 4 billion cell capsule 4,000 mmu cells PO DAILY Rx Instructions: otc unable to verify administer with a meal ibuprofen 600 mg Tablet 600 mg PO QID PRN (Reason: Pain) Rx Instructions: otc unable to verify (DME) CPAP Machine Misc Rx Instructions: Transition from AutoPap to conventional CPAP 7 cm of water, DME [employer]; (DME) Auto Titrating CPAP Misc Rx Instructions: Auto CPAP 5 to 12 cm of water, mask fit to patient comfort, heated humidification, compliance download capabilities, [employer] oxygen/aero care; Discharge Orders: Discharge Order (Routine); Ordered 12/29/24 Ordered By: Hoang Rizvi Admission Data Admit Date/Time: 12/25/24 05:06 Attending Provider: Hoang Rizvi Admit Provider: Lila Carroll Primary Care Provider: Gopal Alicia Other Providers: Kevin Alicia; Lila Carroll Other Interventions: Discharge Summary Assessment (RN) Last Done: 12/29/24 14:21 Hospital Stay Data Consultations 12/25/24 04:44 ED Decision to Admit Stat 12/25/24 05:06 Consult General Surgery Routine Diagnostic Imagining Performed 12/25/24 02:40 CT abd pelvis IV con only Stat 12/25/24 04:57 MR lumbar spine wo/w con Stat Pending Results Patient Have Any Pending Studies at Discharge: No Discharge Instructions Given to Patient (Per Discharging Provider) You are seen in the hospital for appendicitis with periappendiceal fluid suggestive of contained perforation. You did not show any free air in the abdomen and did not require acute surgical intervention. You gradually improved on antibiotics and had your diet advanced to a low residue diet. You did have some urinary retention for which you were started on Flomax, and were subsequently able to void well. An MRI of your lumbar spine showed a large cyst without impingement on the spinal cord or nerves. This was discussed with spinal surgery, no operative intervention or medical management is recommended for this. You did have some inflammatory changes at L4-L5, L5-S1 again for which surgery is not recommended. If you develop any weakness or numbness/tingling in the lower extremities you should have this reevaluated by your primary care physician. You have been started on an antibiotic, Augmentin. Please continue to take Augmentin by mouth twice daily for 10 more days. You are being scheduled for follow-up with surgery for an interval appendectomy. Your follow-up providers may adjust the duration of your antibiotics based on your progression. If you develop any new or worsening symptoms including fever, chills, sweats, chest pain, chest pressure, difficulty breathing, uncontrolled nausea/vomiting, rash, wheezing, passing out or nearly passing out, bleeding, black/bloody bowel movements, or other new or concerning symptoms please call your primary care physician, or call 911 for re-evaluation in the emergency department if you are very concerned. Total Time Total Time Spent Total Time Spent (In Minutes): Time spend day of discharge 40 minutes including direct patient care, documentation, review of labs and images, and coordination of care. Coding Level of Care Code 39565 INP/OBS DISCH >30 MIN Diagnoses Acute appendicitis K35.80 Acute appendicitis type: unspecified acute appendicitis type Sepsis A41.9 Sacral lesion M53.3 Hyperlipidemia E78.5 Sleep apnea G47.30
[2024-12-29 08:25] LABS: Basophils # (auto) 0.03 K/uL (0.00-0.20); Basophils % (auto) 0.2 %; Eosinophils # (auto) 0.19 K/uL (0.00-0.50); Eosinophils % (auto) 1.5 %; Hematocrit (blood only) 39.4 % (42.0-52.0); Hemoglobin 13.4 g/dl (14.0-18.0); Immature Granulocytes # (auto) 0.05 K/uL (0.01-0.20); Immature Granulocytes % (auto) 0.4 %; Lymphocytes # (auto) 1.67 K/uL (1.20-3.40); Lymphocytes % (auto) 12.9 %; Mean Corpuscular Hemoglobin 30.7 pg (25.0-34.0); Mean Corpuscular Volume 90.4 fL (80.0-100.0); Mean Platelet Volume 10.6 fL (9.4-12.4); Monocytes # (auto) 1.33 K/uL (0.11-0.59); Monocytes % (auto) 10.3 %; Neutrophils # (auto) 9.67 K/uL (1.40-6.50); Neutrophils % (auto) 74.7 %; Platelet Count 240 K/uL (130-400); RDW Coefficient of Variation 13.2 % (11.5-14.5); RDW Standard Deviation 44.4 fL (36.4-46.3); Red Blood Count 4.36 M/uL (4.70-6.10); White Blood Count 12.94 K/ul (4.8-10.8)
[2024-12-29 09:09] LABS: BUN Creatinine Ratio 10.6 (10-20); Calcium 8.7 mg/dl (8.6-10.3); Potassium 3.4 mmol/L (3.5-5.1)
[2024-12-29 10:36] VITALS: PULSE 88; RESP 17; TEMP 98.6; O2SAT 96
[2024-12-29 14:22] VITALS: BP 137/82
[2024-12-29] MEDS ORDERED: TAMSULOSIN HCL 0.4 MG CAP PO SCH (21:00)
== END 2024-12-29 14:22 | disposition home or self-care (01) | DRG 871 ==
LOC: SUATTDRO → ED 02:32 → EDINP 05:06 → SUATTDRO 05:06 → 2S 07:40